=== PATIENT | female | born 1985 | race Two or more races ===

== ENCOUNTER 2024-09-20 09:55 | Emergency (ER) | payer MEDICAID, SELFPAY ==
[2024-09-20 09:57] VITALS: BMI 26.6
[2024-09-20 10:11] VITALS: BP 119/70; PULSE 74; RESP 16; TEMP 36.7; O2SAT 98
--- NOTE | 2024-09-20 10:19 | EDNOTE_ITS ---
<Statement entered by Katelin Samuel MD - 09/20/24 17:56> As co-signing physician, I was present and available for consult prn. I concur with the plan and care as documented by the midlevel provider. ED OB Contraction Preg RMI/HPI General Chief complaint: Vaginal Bleeding Stated complaint: VAG BLEED 6 WEEKS Time Seen by Provider: 09/20/24 10:14 Source: patient Arrival date/time: 09/20/24 09:55 38-year-old female with no known medical history presents to the emergency room with a chief complaint of vaginal spotting. Patient is currently 6 weeks . Patient is a 5 P0. Patient has had a history of 3 ectopic pregnancies and no longer has a right ureter. Mode of arrival: ambulatory Limitations: no limitations Related Data Allergies Allergy/AdvReac Type Severity Reaction Status Date / Time acetaminophen (From Vicodin) AdvReac Vomiting Verified 09/20/24 09:57 hydrocodone (From Vicodin) AdvReac Vomiting Verified 09/20/24 09:57 Review of Systems Review of Systems Systems Reviewed: All systems reviewed, normal except as documented Constitutional Constitutional: Reports system reviewed and no additional complaints, except as documented, Denies fatigue, Denies fever(s), Denies headache(s) and Denies weakness Eyes Eyes: Reports system reviewed and no additional complaints, except as documented, Denies blurry vision and Denies change in vision ENT Ears, Nose, Mouth, and Throat: Reports system reviewed and no additional complaints, except as documented, Denies otalgia, Denies headache(s), Denies nasal congestion, Denies throat swelling and Denies vertigo Cardiovascular Cardiovascular: Reports system reviewed and no additional complaints, except as documented, Denies chest pain, Denies dyspnea and Denies dyspnea on exertion Respiratory Respiratory: Reports system reviewed and no additional complaints, except as documented, Denies chest congestion, Denies cough, Denies dyspnea, Denies dyspnea on exertion and Denies wheezing Gastrointestinal Gastrointestinal: Reports system reviewed and no additional complaints, except as documented, Denies abdominal pain, Denies cramping, Denies nausea and Denies vomiting Genitourinary Genitourinary: Reports system reviewed and no additional complaints, except as documented, Reports abnormal vaginal bleeding and Reports flank pain Musculoskeletal Musculoskeletal: Reports system reviewed and no additional complaints, except as documented and Denies back pain Integumentary/Breasts Skin/Breast: Reports system reviewed and no additional complaints, except as documented and Denies wounds Neurologic Neurologic: Reports system reviewed and no additional complaints, except as documented, Denies confusion, Denies headache(s), Denies lack of coordination, Denies vertigo and Denies weakness Psychiatric Psychiatric: Reports system reviewed and no additional complaints, except as documented, Denies anxiety, Denies confusion, Denies depression, Denies paranoia, Denies suicidal ideation and Denies tactile hallucinations Endocrine Endocrine: Reports system reviewed and no additional complaints, except as documented and Denies fatigue Hematologic/Lymphatic Hematologic/Lymphatic: Reports system reviewed and no additional complaints, except as documented and Denies lymphadenopathy Allergic/Immunologic Allergic/Immunologic: Reports system reviewed and no additional complaints, except as documented, Denies throat swelling, Denies urticaria and Denies wheezing Past Medical History Social History SMOKING STATUS: Never smoker ED Exam General Limitations: Present no limitations General appearance: Present alert and in no apparent distress Head Head exam: Present atraumatic Eye Eye exam: Present normal appearance, PERRL and EOMI ENT ENT exam: Present normal exam, normal oropharynx and mucous membranes moist Neck Neck exam: Present normal inspection, full ROM and trachea midline Chest Chest inspection: Present normal inspection and symmetric chest wall rise Respiratory Respiratory exam: Present normal lung sounds bilaterally Cardiovascular Cardiovascular exam: Present regular rate, normal rhythm and normal heart sounds Abdominal Exam Abdominal exam: Present soft, tenderness and normal bowel sounds Abdominal tenderness: Present RLQ, suprapubic and moderate Extremities Exam Extremities exam: Present normal inspection and full ROM Back Exam Back exam: Present normal inspection and full ROM Neurological Exam Neurological exam: Present alert, oriented X3 and CN II-XII intact Psychiatric Psychiatric exam: Present normal affect and normal mood Skin Skin exam: Present warm, dry, intact and normal color Course Quality Measures none Orders Category Date Time Status US OB <= 14 weeks fetus Stat Exams 09/20/24 10:19 Completed ABO/RH Type Stat Lab 09/20/24 10:30 Completed Beta HCG,Quantitative Stat Lab 09/20/24 10:30 Completed CBC Stat Lab 09/20/24 10:30 Completed CMP [Comprehensive Metabolic Panel] Stat Lab 09/20/24 10:30 Completed UA [Urinalysis] Stat Lab 09/20/24 11:10 Completed Vital Signs Vital signs: Vital Signs Temperature 98.0 F 09/20/24 10:11 Pulse Rate 74 09/20/24 10:11 Respiratory Rate 16 09/20/24 10:11 Blood Pressure 119/70 09/20/24 10:11 Pulse Oximetry (%) 98 09/20/24 10:11 Oxygen Delivery Method Room Air 09/20/24 10:11 O2 saturation 98% within normal limits Vaginal Bleeding MDM Narrative MDM Narrative: 38-year-old female with no known medical history presents to the emergency room with a chief complaint of vaginal spotting. Patient is currently 6 weeks . Patient is a 5 P0. Patient has had a history of 3 ectopic pregnancies and no longer has a right ureter. Patient is hemodynamically stable and in no apparent distress. Patient denies any abdominal pain and has a soft nontender abdomen. Patient states she is having vaginal spotting when she wipes OB ultrasound was completed and at this time does not show an intrauterine gestation or uterine mass. There is no ectopic . hCG levels were 2337. Patient was educated to follow-up with her [facility] or to return to the emergency room in the next 48 to 72 hours for repeat blood work and repeat ultrasound. For any evidence of worsening signs or symptoms return to the emergency room immediately Patient data External records reviewed:: [facility] previous records Clinical information provided by:: patient Social determinants that could affect healthcare access:: none Patient has the following chronic illnesses:: No chronic illness How is presenting disease/condition affected by chronic disease/condition?: no chronic disease Evaluation data The following diagnostics were reviewed and interpreted by me:: lab results and radiology exam(s) Lab and/or radiology exams considered but not ordered:: Labs and radiology exams considered and ordered Interpretation Summary: OB ultrasound-Findings: Uterus 8.4 cm endometrial stripe 1.1 cm No intrauterine gestation or uterine mass Right ovary 3.1 cm arterial flow. Left ovary 3.0 cm arterial flow IMPRESSION: Negative study Medications / Prescriptions Medications or Prescriptions considered but not ordered:: No medication given Medication administrations:: No medication given Consultations Consultation(s) initiated? (list below): No Diagnosis Vaginal Bleeding Differential Diagnosis: threatened , dysfunctional uterine bleeding, incomplete , ectopic without intrauterine and vaginal bleeding Most likely diagnosis given after review of the tests above:: Vaginal bleeding Admission Indicated Admission indicated?: not indicated Admission Request Was there a request for admission?: No Disposition Plan Disposition Plan: Discharge Discharge Attestation Discharge Attestation: The patient and all family members were given an opportunity to ask questions and understood the discharge instructions. Discharge instructions specifically effects, indications for sooner follow up or return to the emergency department, and the expected course of current diagnosis. Patient condition: Stable Discharge Plan Plan Patient Disposition: HOME (Self Care) Disposition Comment: Stable Prescriptions/Referrals Referrals: Julio C Miller MD [Primary Care Provider] - In 1 week Problem List Clinical Impression: Vaginal bleeding Patient/Caregiver Discharge Instructions Education Materials: ED Dysfunctional Uterine Bleeding Additional Instructions: Please follow-up with your [facility] in the next 24 to 48 hours. You will need to get a repeat ultrasound and blood work in the next 48 to 72 hours. At this time your hCG levels are 2337. For any evidence of worsening signs or symptoms return to the emergency room immediately Print Language: [place] Stand Alone Forms: Marivel Award Info., Patient Portal Info Letter PA/SITE OPERATIONS MANAGER Supervising Physician PA/SITE OPERATIONS MANAGER Supervising Physician: Dr. SAMUEL
--- NOTE | 2024-09-20 10:19 | XR_ITS ---
Examination: Complete OB ultrasound, less than 14 weeks, transabdominal Date and time of exam: September 20, 2024 at 1114 hours INDICATIONS: Pelvic pain and vaginal discharge onset today Technique: Obstetrical ultrasound images less than 14 weeks performed via transabdominal imaging Findings: Uterus 8.4 cm endometrial stripe 1.1 cm No intrauterine gestation or uterine mass Right ovary 3.1 cm arterial flow. Left ovary 3.0 cm arterial flow IMPRESSION: Negative study
[2024-09-20 11:17] LABS: Basophils % (Auto) 1 % (0-2.5); Eosinophils # (Auto) 0.3 Thou/mm3 (0.0-0.5); Eosinophils % (Auto) 6 % (0-10); Hematocrit 40.5 % (36.0-46.0); Hemoglobin 13.5 g/dL (12.0-16.0); Immature Granulocytes % (Auto) 0 % (0-0); Immature Granulocytes Auto 0.01 Thou/mm3 (0.00-0.00); Lymphocytes # (Auto) 1.6 Thou/mm3 (1.0-4.8); Lymphocytes % (Auto) 30 % (10-50); Mean Corpuscular HGB Conc 33.3 g/dl (31.0-37.0); Mean Corpuscular Hemoglobin 29.3 pg (25.0-35.0); Mean Corpuscular Volume 88 fL (80-100); Monocytes # (Auto) 0.4 Thou/mm3 (0.0-0.8); Monocytes % (Auto) 7 % (0-12); Neutrophils % (Auto) 56 % (37-80); Nucleated Red Blood Cell % 0 /100 WBC (0); Platelet Count 259 Thou/mm3 (140-440); RDW Standard Deviation 44.2 fL (36.4-46.3); White Blood Count 5.3 Thou/mm3 (3.6-11.0)
[2024-09-20 11:52] LABS: Alanine Aminotransferase 32 U/L (10-49); Albumin, Serum 4.1 gm/dL (3.5-5.0); Albumin/Globulin Ratio 1.5 (1.2-2.2); Alkaline Phosphatase 42 U/L (46-116); Anion Gap 10 (7-16); Aspartate Amino Transferase 21 U/L (0-34); BUN/Creatinine Ratio 14 Ratio (12-20); Beta HCG,Quantitative 2337 mIU/mL (<5.0); Bilirubin,Total 0.6 mg/dL (0.3-1.2); Blood Urea Nitrogen 11 mg/dL (9-23); Calcium 9.6 mg/dL (8.3-10.6); Calcium (Corrected) 9.6 mg/dL (8.5-10.1); Carbon Dioxide 22.8 mMol/L (20.0-31.0); Chloride 106 mMol/L (98-107); Creatinine (Component) 0.8 mg/dL (0.6-1.3); Estimated Creatinine Clearance 104.1 mL/min (>60); Globulin 2.8 gm/dL (2.3-3.5); Glucose 121 mg/dL (74-106); Osmolality,Calculated 277 (275-295); Potassium 4.1 mMol/L (3.4-5.1); Sodium 139 mMol/L (136-145); Total Protein 6.9 gm/dL (5.7-8.2); eGFR > 60 See Note
[2024-09-20 11:53] LABS: Collection Type, Urine Clean Catch
[2024-09-20 12:00] LABS: Bacteria,Urine Rare; Bilirubin,Urine Negative (Negative); Blood,Urine 2+ (Negative); Clarity,Urine Clear (Clear/Hazy); Color,Urine Yellow (Lt Yel-Yel); Glucose, Urine Negative (Negative); Ketones,Urine Negative (Negative); Leukocyte Esterase,Urine Negative (Negative); Nitrite,Urine Negative (Negative); PH,Urine 6.5 (5.0-7.0); Protein,Urine Trace (Neg - Trace); RBC,Urine 5 /hpf (0-3); Specific Gravity,Urine 1.026 (1.001-1.035); Squamous Epithelial Cell,Urine 9 /hpf (0-5); Urobilinogen,Urine Negative mg/dL (0.0-1.0); WBC,Urine 2 /hpf (0-5)
== END 2024-09-20 14:21 | disposition home or self-care (01) ==
PROVIDERS: Nurse Practitioner Family; Emergency Provider Emergency Medicine; PCP Obstetrics & Gynecology
DX: O20.9 Hemorrhage in early pregnancy, unspecified (principal); Z3A.01 Less than 8 weeks gestation of pregnancy
CPT/HCPCS: 36415; 76801; 80053; 81001; 84702; 85025; 86900; 86901; 99284

== ENCOUNTER 2024-09-23 05:41 | Emergency (ER) | payer MEDICAID, SELFPAY ==
[2024-09-23 05:42] VITALS: BMI 26.6
[2024-09-23 05:50] VITALS: BP 112/64; PULSE 78; RESP 18; TEMP 36.6; O2SAT 97
--- NOTE | 2024-09-23 05:51 | PD.EDRME ---
Rapid Medical Screening Exam [facility] Arrival date/time: 09/23/24 05:41 38F at approximately 6 weeks and with history of ectopic (s/p R tubal ligation) presents to ED with needing repeat beta HCG. Patient was here several days ago with nothing on transabdominal US. HCG was around 2k. Patient states she was spotting the first day, but then it stopped. It started again yesterday a bit heavier, but patient denies gross vaginal bleeding and pelvic pain. Chief Complaint: Vaginal Bleeding Vital signs: Vital Signs Temperature 98 F 09/23/24 05:50 Pulse Rate 78 09/23/24 05:50 Respiratory Rate 18 09/23/24 05:50 Blood Pressure 112/64 09/23/24 05:50 Pulse Oximetry (%) 97 09/23/24 05:50 Oxygen Delivery Method Room Air 09/23/24 05:50
--- NOTE | 2024-09-23 05:55 | XR_ITS ---
Examination: OB Transvaginal ultrasound of the pelvis, complete Technique: Transvaginal sonographic images pelvis performed using monahan scale imaging Exam date and time: September 23, 2024 0727 hrs. Indications: Vaginal bleeding and discharge beginning 3 days ago Findings: Uterus 8.0 cm, pole 0.2 cm corresponds to 5 weeks 5 day gestational age No cardiac motion Right ovary 3.0 cm arterial flow Patent right fallopian tube 2.4 cm Left ovary 2.9 cm arterial flow Impression: Intrauterine gestation corresponding to 5 weeks 5 day gestational age, no cardiac motion Recommend short-term follow-up transvaginal pelvic sonography to confirm viability.
[2024-09-23 06:46] LABS: Beta HCG,Quantitative 4130 mIU/mL (<5.0)
--- NOTE | 2024-09-23 08:41 | PD.EDVAGBL ---
ED OB Contraction Preg RMI/HPI General Chief complaint: Vaginal Bleeding Stated complaint: 6WKS PREG RECHECK HCG LEVELS Time Seen by Provider: 09/23/24 06:55 Source: patient Arrival date/time: 09/23/24 05:41 This is a 38-year-old female here in emergency department approximately 6 weeks here for repeat hCG and ultrasound. Reported she did have some mild spotting however denies gross vaginal bleeding or pelvic pain. No fever. No dysuria. Mode of arrival: ambulatory Limitations: no limitations RME / HPI RME / HPI Narrative: 09/23/24 05:41 38F at approximately 6 weeks and with history of ectopic (s/p R tubal ligation) presents to ED with needing repeat beta HCG. Patient was here several days ago with nothing on transabdominal US. HCG was around 2k. Patient states she was spotting the first day, but then it stopped. It started again yesterday a bit heavier, but patient denies gross vaginal bleeding and pelvic pain. Related Data Allergies Allergy/AdvReac Type Severity Reaction Status Date / Time acetaminophen (From Vicodin) AdvReac Vomiting Verified 09/30/24 05:18 hydrocodone (From Vicodin) AdvReac Vomiting Verified 09/30/24 05:18 Review of Systems Review of Systems Systems Reviewed: All systems reviewed, normal except as documented Narrative Review of Systems: Gen: No fever, no chills, no weight loss EYES: No discharge, no visual changes, no pain HEENT: No ear pain, no congestion, no sore throat PULM: No shortness of breath, no cough, no congestion CV: No chest pain, no dyspnea on exertion, no palpitations GI: No nausea, no vomiting, no diarrhea, no pain, no constipation : No frequency, no urgency, no dysuria Musc/skel: No joint pain, no back pain Skin: No rash Psyc: No hallucinations, no depression Heme/Lymph: No easy bleeding or bruising tendencies Neuro: No weakness, no headache ED Exam General Limitations: Present no limitations General appearance: Present alert and in no apparent distress Head Head exam: Present atraumatic Eye Eye exam: Present normal appearance, PERRL and EOMI ENT ENT exam: Present normal exam, normal oropharynx and mucous membranes moist Neck Neck exam: Present normal inspection, full ROM and trachea midline Chest Chest inspection: Present normal inspection and symmetric chest wall rise Respiratory Respiratory exam: Present normal lung sounds bilaterally Cardiovascular Cardiovascular exam: Present regular rate, normal rhythm and normal heart sounds Abdominal Exam Abdominal exam: Present soft and normal bowel sounds Extremities Exam Extremities exam: Present normal inspection and full ROM Back Exam Back exam: Present normal inspection and full ROM Neurological Exam Neurological exam: Present alert, oriented X3 and CN II-XII intact Psychiatric Psychiatric exam: Present normal affect and normal mood Skin Skin exam: Present warm, dry, intact and normal color Course Quality Measures none Orders Category Date Time Status US OB transvaginal Stat Exams 09/23/24 05:55 Completed Beta HCG,Quantitative Stat Lab 09/23/24 06:04 Completed Vital Signs Vital signs: Vital Signs Temperature 98 F 09/23/24 05:50 Pulse Rate 78 09/23/24 05:50 Respiratory Rate 18 09/23/24 05:50 Blood Pressure 112/64 09/23/24 05:50 Pulse Oximetry (%) 97 09/23/24 05:50 Oxygen Delivery Method Room Air 09/23/24 05:50 Vaginal Bleeding MDM Narrative MDM Narrative: No vaginal bleeding. Ultrasound does show an IUP of approximately 5 weeks however no cardiac motion. Advised to follow-up with her PCP for follow-up ultrasound and hCG within a couple days. ER precautions given Patient data External records reviewed:: [facility] previous records Clinical information provided by:: patient Social determinants that could affect healthcare access:: none Patient has the following chronic illnesses:: None How is presenting disease/condition affected by chronic disease/condition?: no chronic disease Evaluation data The following diagnostics were reviewed and interpreted by me:: lab results and radiology exam(s) Lab and/or radiology exams considered but not ordered:: No Interpretation Summary: Ordering Physician: Fidel Townsend PA-C Date of Service: 09/23/24 Procedure(s): OB transvaginal Accession Number(s): [id number] cc: Jose Manuel Villela MD; Julio C Miller MD; Fidel Townsend PA-C~ Examination: OB Transvaginal ultrasound of the pelvis, complete Technique: Transvaginal sonographic images pelvis performed using monahan scale imaging Exam date and time: September 23, 2024 0727 hrs. Indications: Vaginal bleeding and discharge beginning 3 days ago Findings: Uterus 8.0 cm, pole 0.2 cm corresponds to 5 weeks 5 day gestational age No cardiac motion Right ovary 3.0 cm arterial flow Patent right fallopian tube 2.4 cm Left ovary 2.9 cm arterial flow Impression: Intrauterine gestation corresponding to 5 weeks 5 day gestational age, no cardiac motion Recommend short-term follow-up transvaginal pelvic sonography to confirm viability. Medications / Prescriptions Medications or Prescriptions considered but not ordered:: No Medication administrations:: No Consultations Consultation(s) initiated? (list below): No Diagnosis Vaginal Bleeding Differential Diagnosis: missed , threatened , dysfunctional uterine bleeding, incomplete and vaginal bleeding Most likely diagnosis given after review of the tests above:: Threatened Admission Indicated Admission indicated?: not indicated Admission Request Was there a request for admission?: No Disposition Plan Disposition Plan: Discharge Discharge Attestation Discharge Attestation: The patient and all family members were given an opportunity to ask questions and understood the discharge instructions. Discharge instructions specifically effects, indications for sooner follow up or return to the emergency department, and the expected course of current diagnosis. Patient condition: Stable Discharge Plan Plan Patient Disposition: HOME (Self Care) Patient condition on transfer: Stable Prescriptions/Referrals Referrals: Julio C Miller MD [Primary Care Provider] - In 1 week Problem List Clinical Impression: Vaginal bleeding Patient/Caregiver Discharge Instructions Discharge Activity: activity as tolerated Additional Instructions: Hcg 4130 increased from 2337, please have levels repeated by your PMD, in 1 wk U/S- repeat in 1 week. Return to the emergency department, immediately if there is any worsening pain vaginal bleeding fever or changes in condition. Print Language: Croatian Stand Alone Forms: Marivel Award Info., Patient Portal Info Letter KARLENE/LUCIA Supervising Physician KARLENE/LUCIA Supervising Physician: Dr. Ramirez
[2024-09-23 08:58] VITALS: BP 119/62; PULSE 66; RESP 16; TEMP 36.6; O2SAT 97
== END 2024-09-23 09:03 | disposition home or self-care (01) ==
PROVIDERS: Physician Assistant; Emergency Provider Emergency Medicine; PCP Obstetrics & Gynecology
DX: O20.9 Hemorrhage in early pregnancy, unspecified (principal); Z3A.01 Less than 8 weeks gestation of pregnancy
CPT/HCPCS: 36415; 76817; 84702; 99284

== ENCOUNTER 2024-09-30 05:17 | Emergency (ER) | payer MEDICAID, SELFPAY ==
[2024-09-30 05:24] VITALS: BP 100/58; PULSE 84; RESP 18; TEMP 36.7; O2SAT 97
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
--- NOTE | 2024-09-30 05:41 | PD.EDRME ---
Rapid Medical Screening Exam [facility] Arrival date/time: 09/30/24 05:17 38F at approximately 7 weeks and with history of ectopic (s/p R tubal ligation) presents to ED with needing repeat beta HCG and US. Patient was here last week with IU gestation but no FHTs. Patient states she's had intermittent spotting and pelvic cramping since then. Patient is O+. Chief Complaint: Vaginal Bleeding Vital signs: Vital Signs Temperature 98.1 F 09/30/24 05:24 Pulse Rate 84 09/30/24 05:24 Respiratory Rate 18 09/30/24 05:24 Blood Pressure 100/58 L 09/30/24 05:24 Pulse Oximetry (%) 97 09/30/24 05:24 Oxygen Delivery Method Room Air 09/30/24 05:24
[2024-09-30 06:12] LABS: Basophils % (Auto) 1 % (0-2.5); Eosinophils # (Auto) 0.4 Thou/mm3 (0.0-0.5); Eosinophils % (Auto) 7 % (0-10); Hematocrit 40.2 % (36.0-46.0); Hemoglobin 13.4 g/dL (12.0-16.0); Immature Granulocytes % (Auto) 0 % (0-0); Immature Granulocytes Auto 0.02 Thou/mm3 (0.00-0.00); Lymphocytes # (Auto) 1.9 Thou/mm3 (1.0-4.8); Lymphocytes % (Auto) 30 % (10-50); Mean Corpuscular HGB Conc 33.3 g/dl (31.0-37.0); Mean Corpuscular Hemoglobin 29.6 pg (25.0-35.0); Mean Corpuscular Volume 89 fL (80-100); Monocytes # (Auto) 0.5 Thou/mm3 (0.0-0.8); Monocytes % (Auto) 8 % (0-12); Neutrophils # (Auto) 3.5 Thou/mm3 (1.8-7.7); Neutrophils % (Auto) 55 % (37-80); Nucleated Red Blood Cell % 0 /100 WBC (0); Platelet Count 223 Thou/mm3 (140-440); RDW Standard Deviation 43.3 fL (36.4-46.3); Red Blood Count 4.52 Miln/mm3 (4.00-5.20); White Blood Count 6.4 Thou/mm3 (3.6-11.0)
[2024-09-30 06:37] LABS: Alanine Aminotransferase 14 U/L (10-49); Albumin, Serum 4.3 gm/dL (3.5-5.0); Albumin/Globulin Ratio 1.6 (1.2-2.2); Alkaline Phosphatase 42 U/L (46-116); Anion Gap 8 (7-16); Aspartate Amino Transferase 16 U/L (0-34); BUN/Creatinine Ratio 19 Ratio (12-20); Bilirubin,Total 0.7 mg/dL (0.3-1.2); Blood Urea Nitrogen 15 mg/dL (9-23); Calcium 9.7 mg/dL (8.3-10.6); Calcium (Corrected) 9.7 mg/dL (8.5-10.1); Carbon Dioxide 25.9 mMol/L (20.0-31.0); Chloride 106 mMol/L (98-107); Creatinine (Component) 0.8 mg/dL (0.6-1.3); Globulin 2.7 gm/dL (2.3-3.5); Glucose 94 mg/dL (74-106); Osmolality,Calculated 280 (275-295); Potassium 3.9 mMol/L (3.4-5.1); Sodium 140 mMol/L (136-145); eGFR > 60 See Note
[2024-09-30 07:05] LABS: Beta HCG,Quantitative 23848 mIU/mL (<5.0)
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
[2024-09-30 07:53] VITALS: BP 126/77; PULSE 66; RESP 15; TEMP 36.7; O2SAT 97
== END 2024-09-30 07:55 | disposition home or self-care (01) ==
PROVIDERS: Physician Assistant; Emergency Provider Emergency Medicine; PCP Obstetrics & Gynecology
DX: O20.0 Threatened abortion (principal); Z3A.01 Less than 8 weeks gestation of pregnancy
CPT/HCPCS: 36415; 76817; 80053; 84702; 85025; 99284

== ENCOUNTER 2024-10-12 12:23 | Emergency (ER) | payer MEDICAID, SELFPAY ==
[2024-10-12 12:25] VITALS: BMI 26.9
[2024-10-12 12:35] VITALS: BP 132/78; PULSE 79; RESP 19; TEMP 36.7; O2SAT 97
--- NOTE | 2024-10-12 12:35 | PC.NURSE ---
Dr. Sesay called to triage to assess patient for possible stroke, patient c/o kevin. face numbness, patient has h/o migraines, no stroke alert called at this time, per Dr. Mendoza, patient able to move all extremities. patient approx. 8 weeks .
--- NOTE | 2024-10-12 12:35 | PC.NURSE ---
PT MOVED TO ROOM TO BE EVALUATED BY GALLERY ASSISTANT TO R/O STROKE ALERT. CHARGE NURSE PARIS BESS.
--- NOTE | 2024-10-12 12:46 | PD.EDNEURO ---
Neuro Symptoms Deficit-RME/HPI General Chief Complaint: Neuro Symptoms/Deficit Stated Complaint: 8WK PREG, DIZZY WITH FACIAL NUMBNESS, SLURRY WORDS Time Seen by Provider: 10/12/24 12:48 Arrival date/time: 10/12/24 12:23 RME / HPI RME / HPI Narrative: DR. SESAY MAIN ED EVALUATION: 39 year old female with past medical history significant for hemiplegic migraines since age 26 and current 8 weeks , G5, P0, A4 (x1 miscarriage and x3 ectopic pregnancies) presents to the Emergency Department accompanied by her with multiple complaints including a left-sided headache, similar to her migraines, with associated bilateral facial numbness and tingling. She also mentions she has a brief moment where she had vision changes, light spots seen, but now feels better. Normal gait. Patient also states that she has very light vaginal bleeding that is light brown , ongoing for more than a month on/off. She also reports nausea ongoing since her . Patient states she took Tylenol right before coming here. 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 Related Data Allergies Allergy/AdvReac Type Severity Reaction Status Date / Time acetaminophen (From Vicodin) AdvReac Vomiting Verified 10/12/24 12:29 hydrocodone (From Vicodin) AdvReac Vomiting Verified 10/12/24 12:29 Review of Systems Review of Systems Systems Reviewed: All systems reviewed, normal except as documented Narrative Review of Systems: Constitutional: POSITIVES: vaginal spotting (see HPI); DENIES: fevers; Eyes: POSITIVES: vision changes, light spots seen; DENIES: loss of vision; Head/Ear/Nose: DENIES: loss of hearing. Throat: DENIES: dysphagia. Cardiovascular: DENIES: chest pain, dyspnea, or syncope. Respiratory: DENIES: shortness of breath; Gastrointestinal: POSITIVES: nausea; DENIES: rectal bleeding or melena. Genitourinary: DENIES: dysuria (painful or difficult urination); Musculoskeletal: DENIES: arthralgia (pain in a joint); Skin: DENIES: rash; Neurological: POSITIVES: left-sided headache, bilateral facial numbness and tingling; DENIES: loss of function or movement; Psychiatric: DENIES: recent major life stressor, emotional problem, illicit drug use or abuse; Endocrinology: DENIES: weight change,; Hematologic/Lymphatic: DENIES: abnormal bruising. Allergic/Immunologic: DENIES: urticaria (hives). Past Medical History Past Medical History NEUROLOGIC: Positive Migraine Social History SMOKING STATUS: Never smoker SUBSTANCE USE: does not use ALCOHOL: Never ED Exam Narrative Physical exam: Physical Exam: General: The vital signs were reviewed. The patient is non-toxic, in no apparent distress and appears healthy with a patent airway, no respiratory distress and has no apparent circulatory problems. Head & Scalp: Normocephalic, atraumatic. Face: Appears normal and is without lesions, deformity. Ears: Left external pinna appears normal. Right external pinna appears normal. Eyes: The sclera is anicteric. No obvious photophobia. The Left and Right Orbit/Lid/Conjunctiva appears normal without swelling, discoloration or injection. Nose: The nose is without deformity, discharge or tenderness; Throat: Appears normal. The mucous membranes are pink and moist without exudates, redness or mass seen. The tongue appears normal. Neck: The neck is supple and no apparent mass or adenopathy. Chest: The chest wall is normal in size and symmetry and has no chest wall tenderness or crepitus. The patient displays normal ventilator effort without retractions, accessory muscle use and has adequate air movement bilaterally with no wheezes and no rales. Cardiovascular: Regular rate and rhythm; No murmurs, rubs, or gallops; Gastrointestinal: The abdomen appears normal. No obvious hernias or mass. The abdomen is soft and benign, non-distended, with no pain, no guarding and no rebound tenderness. Bowel sounds are present and normal sounding. No CVA tenderness. Genitourinary: Back/Spine: Extremities/Musculoskeletal/lymphatic: The bilateral upper and lower extremities are warm. There is no evidence of arterial insufficiency. There is no evidence of venous insufficiency/edema. The patient spontaneously moves bilateral upper and lower extremities with no pain and no limitation of movement. There is no apparent, injury or trauma. Skin: The skin is warm, dry and intact. No rashes. No petechia. No purpura. No abnormal bruising. The color is appropriate with no cyanosis. Mental status/Psychiatric: Mental status is appropriate for age. The patient has no apparent delusions, visual hallucinations, no apparent audible hallucinations. The patient has no apparent suicidal thoughts/ideation and no apparent homicidal thoughts/ideation. Neurological: The patient is awake, alert, interactive, cordial, cooperative and is oriented to name and situation. The patient follows commands and answers historical question with no impairment. Cranial nerves II through XII are intact. There is no diplopia. She has subjective tingling to her face There is no visual disturbance apparent. The pupils are equal and reactive bilaterally with normal eye movements and no diplopia The bilateral upper and lower extremities have normal strength, normal range of motion and normal functioning. The gait, station and balance appear to be baseline with no acute change she gets off from the chair and walks without any ataxia. She has no focal deficit in arms or legs. Course Quality Measures none Orders Category Date Time Status Bedside Blood Glucose NOW Care 10/12/24 12:49 Active US OB <= 14 weeks fetus Stat Exams 10/12/24 12:53 Completed XR chest 1V portable Stat Exams 10/12/24 12:49 Completed ABO/RH Type Stat Lab 10/12/24 16:28 Ordered Alcohol, Blood Medical Stat Lab 10/12/24 13:46 Completed B-Type Natriuretic Peptide Stat Lab 10/12/24 13:46 Completed Beta HCG,Quantitative Stat Lab 10/12/24 13:46 Received Blood Culture (Lab) Stat Lab 10/12/24 13:46 Received CBC Stat Lab 10/12/24 13:46 Completed Comprehensive Metabolic Panel Stat Lab 10/12/24 13:46 Completed Drug Screen,Urine Stat Lab 10/12/24 13:51 Completed Lactate (Lactic Acid) Stat Lab 10/12/24 13:46 Completed Procalcitonin Stat Lab 10/12/24 13:46 Completed Prothrombin Time with INR Stat Lab 10/12/24 13:46 Completed Troponin I Stat Lab 10/12/24 13:46 Completed Urinalysis Stat Lab 10/12/24 13:46 Completed Urinalysis, C/S if Indicated Stat Lab 10/12/24 13:46 Completed Venous Blood Gas Stat Lab 10/12/24 13:46 Completed Metoclopramide Inj [Reglan Inj] Med 10/12/24 12:53 Discontinued 10 mg IVP X1 ONE Sodium Chloride 0.9% 1000 ml [Ns] 1,000 ml Med 10/12/24 12:48 Discontinued IV 1,000 mls/hr Vital Signs Vital signs: Vital Signs Temperature 98.1 F 10/12/24 12:35 Pulse Rate 79 10/12/24 12:35 Respiratory Rate 19 10/12/24 12:35 Blood Pressure 132/78 H 10/12/24 12:35 Pulse Oximetry (%) 97 10/12/24 12:35 Oxygen Delivery Method Room Air 10/12/24 12:35 Neuro Symptoms / Deficit MDM Narrative MDM Narrative:: I, Sada Mendoza, am scribing for and in the presence of Dr. Sesay. Patient presents with bilateral tingling to her face and arm with a left-sided headache and has a history of complex her hemiplegic migraines. She has had 5 pregnancies now and for them have been and she is currently at 8 weeks. Because of this she is not a candidate for any migraine treatment. She does not have a CVA as presumably this is all related to her migraines. I discussed this with Dr. Bess our neurologist to see if there is any other options and she agreed with fluids Tylenol and Reglan and then reevaluate. Patient was updated at 1250 hrs. and seems to be much more relieved with the plan as she is asked specially nervous about this baby. Patient got a liter of fluids got some Reglan and on reevaluation she is feeling much much better. She says her tingling and neurologic symptoms have nearly resolved. She has just minimal discomfort behind the left eye which is typical for her complex migraines historically Ultrasound of the fetus reveals a live IUP 7 weeks 5 days. There is no subchorionic hemorrhage. Urine drug screen came back negative. Urinalysis came back negative. CMP came back negative with a lactic acid of 1 electrolytes are normal except for sodium 133 which is minimally low BUN is 8 creatinine is 0.7. Venous blood gas came back with a pH of 736 and PT and INR within normal limits white count is 7.6. Hemoglobin 13.7 This patient presented with a possible stroke alert as she was having neurological symptoms and the charge nurse brought her to my attention where I got up and went and saw this patient immediately. Do not feel this patient was having a stroke as she has a strong history of complex migraines in the past and was not having any significant neurological symptoms other than paresthesia and pain in the left side of her orbit and head. Note patient is O+ has records with her to confirm this. Nonetheless I added an ABO just for documentation After observation for several hours she is clinically much improved. She knows to follow-up with her OB doctor in 2 days for recheck. Her spotting has been minimal. A quant of hCG was missed and ordered late. Patient knows to return if getting worse in any way and take Tylenol and try to get regular sleep patterns and get a appoint with a neurologist in this region to manage her complex migraines for the future. Patient data External records reviewed:: [facility] previous records (Reviewed last ED visit dated 09/30/24, discharged with the following: Threatened ) Clinical information provided by:: patient and spouse Social determinants that could affect healthcare access:: none Patient has the following chronic illnesses:: hemiplegic migraines since age 26 and current 8 weeks , G5, P0, A4 (x1 miscarriage and x3 ectopic pregnancies) How is presenting disease/condition affected by chronic disease/condition?: exacerbated by Evaluation data The following diagnostics were reviewed and interpreted by me:: lab results and radiology exam(s) Lab and/or radiology exams considered but not ordered:: none Interpretation Summary: Procedure(s): US OB <= 14 weeks fetus Accession Number(s): [id number] cc: Edmund Sesay MD; Jose Manuel Villela MD; Julio C Miller MD~ Examination: Complete OB ultrasound, less than 14 weeks, transabdominal Date and time of exam: October 12, 2024 1404 hours INDICATIONS: Vaginal bleeding today Technique: Obstetrical ultrasound images less than 14 weeks performed via transabdominal imaging Findings: A normal shaped single intrauterine gestation is present in the uterus. CRL 1.4 cm corresponds to 7 weeks 5 days gestational age No subchorionic hemorrhage Cardiac motion 153 BPM Ultrasonographic survey of visible and placental structures unremarkable. Amniotic fluid volume appears appropriate for this estimated gestational age. Right ovary 3.3 cm arterial flow Left ovary 3.4 cm arterial flow IMPRESSION: Viable intrauterine gestation 7 weeks 5 days. Dictated By: Jose Manuel Villela MD Procedure(s): XR chest 1V portable Accession Number(s): [id number] cc: Edmund Sesay MD; Jose Manuel Villela MD; Julio C Miller MD~ Examination: AP chest single view Technique one AP portable upright chest single view Exam date and time: October 12, 2024 1307 hours INDICATIONS: Acute chest pain today FINDINGS: Normal heart size. Lungs are clear. The osseous structures are intact IMPRESSION: No active disease Dictated By: Jose Manuel Villela MD Medications / Prescriptions Medications or Prescriptions considered but not ordered:: none Medication administrations:: Medication Administration History Discontinued Medications Sodium Chloride (Ns) 1,000 mls @ 1,000 mls/hr IV .Q1H ONE Stop: 10/12/24 13:47 Last Admin: 10/12/24 13:38 Dose: 1,000 mls/hr Documented By: NATASHA Comments: scanner not working Metoclopramide HCl (Metoclopramide Inj 5 Mg/Ml Vial 2 Ml) 10 mg IVP X1 ONE; Protocol Stop: 10/12/24 12:54 Last Admin: 10/12/24 13:39 Dose: 10 mg Documented By: NATASHA Comments: scanner not working see above Consultations Consultation(s) initiated? (list below): Yes Consultation #1 (Physician, Specialty, Details): Discussed test HPI, PMHx, lab, radiology results and/or management with Dr. Bess. See above under MDM narrative for details. Time: 12:55 Diagnosis Neuro Differential Diagnosis: transient cerebral ischemia and other (dehydration, sepsis, UTI) Most likely diagnosis given after review of the tests above:: First trimester Migraine Admission Indicated Admission indicated?: not indicated Admission Request Was there a request for admission?: No Disposition Plan Disposition Plan: Discharge Discharge Attestation Discharge Attestation: The patient and all family members were given an opportunity to ask questions and understood the discharge instructions. Discharge instructions specifically effects, indications for sooner follow up or return to the emergency department, and the expected course of current diagnosis. Patient condition: Stable Discharge Plan Plan Patient Disposition: HOME (Self Care) Prescriptions/Referrals Referrals: Julio C Miller MD [Primary Care Provider] - In 1 week Problem List Clinical Impression: First trimester , Migraine, Paresthesias Impression comment: Patient actually has complex migraines with past history of hemiplegic symptoms but today was only paresthesias greatly improved Patient/Caregiver Discharge Instructions Education Materials: First Trimester Additional Instructions: Follow-up with your OB doctor in 2 days as we discussed. Your ultrasound reveals a live healthy baby. If you are having bleeding or increasing pain please return or see your OB doctor sooner. Today you appear to have another complex migraine with paresthesias or tingling which has gotten better. As we discussed it is safe to drink plenty of fluids to stay well-hydrated use Tylenol for pain and return if you are getting worse in any way. Print Language: Palauan
--- NOTE | 2024-10-12 12:49 | XR_ITS ---
Examination: AP chest single view Technique one AP portable upright chest single view Exam date and time: October 12, 2024 1307 hours INDICATIONS: Acute chest pain today FINDINGS: Normal heart size. Lungs are clear. The osseous structures are intact IMPRESSION: No active disease
--- NOTE | 2024-10-12 12:53 | XR_ITS ---
Examination: Complete OB ultrasound, less than 14 weeks, transabdominal Date and time of exam: October 12, 2024 1404 hours INDICATIONS: Vaginal bleeding today Technique: Obstetrical ultrasound images less than 14 weeks performed via transabdominal imaging Findings: A normal shaped single intrauterine gestation is present in the uterus. CRL 1.4 cm corresponds to 7 weeks 5 days gestational age No subchorionic hemorrhage Cardiac motion 153 BPM Ultrasonographic survey of visible and placental structures unremarkable. Amniotic fluid volume appears appropriate for this estimated gestational age. Right ovary 3.3 cm arterial flow Left ovary 3.4 cm arterial flow IMPRESSION: Viable intrauterine gestation 7 weeks 5 days.
[2024-10-12] MEDS: SODIUM CHLORIDE 0.9% 1000 ML 1,000 ML IV (13:38)
[2024-10-12] MEDS: METOCLOPRAMIDE INJ 5 MG/ML VIAL 2 ML 10 MG IVP (13:39)
[2024-10-12 13:53] LABS: Collection Type, Urine Clean Catch
[2024-10-12 14:13] LABS: Bacteria,Urine Rare; Base Excess, Venous 0 (-3-3); Bilirubin,Urine Negative (Negative); Blood,Urine Negative (Negative); Clarity,Urine Clear (Clear/Hazy); Color,Urine Yellow (Lt Yel-Yel); Culture Indicated,Urine Not Indicated; Glucose, Urine Negative (Negative); Ketones,Urine Negative (Negative); Leukocyte Esterase,Urine Negative (Negative); Nitrite,Urine Negative (Negative); O2 Saturation, Venous 72 % (96-97); PCO2, Venous 45 mmHg (36-56); PO2, Venous 39 mmHg (15-58); Protein,Urine Negative (Neg - Trace); RBC,Urine 2 /hpf (0-3); Squamous Epithelial Cell,Urine 6 /hpf (0-5); Urobilinogen,Urine Negative mg/dL (0.0-1.0); WBC,Urine 2 /hpf (0-5); pH, Venous 7.36 (7.33-7.66)
[2024-10-12 14:19] LABS: Basophils % (Auto) 1 % (0-2.5); Eosinophils # (Auto) 0.5 Thou/mm3 (0.0-0.5); Eosinophils % (Auto) 7 % (0-10); Hematocrit 39.8 % (36.0-46.0); Hemoglobin 13.7 g/dL (12.0-16.0); Immature Granulocytes % (Auto) 0 % (0-0); Immature Granulocytes Auto 0.03 Thou/mm3 (0.00-0.00); Lymphocytes # (Auto) 1.9 Thou/mm3 (1.0-4.8); Lymphocytes % (Auto) 26 % (10-50); Mean Corpuscular HGB Conc 34.4 g/dl (31.0-37.0); Mean Corpuscular Hemoglobin 30.2 pg (25.0-35.0); Mean Corpuscular Volume 88 fL (80-100); Monocytes # (Auto) 0.6 Thou/mm3 (0.0-0.8); Monocytes % (Auto) 9 % (0-12); Neutrophils # (Auto) 4.4 Thou/mm3 (1.8-7.7); Neutrophils % (Auto) 59 % (37-80); Nucleated Red Blood Cell % 0 /100 WBC (0); Platelet Count 207 Thou/mm3 (140-440); Red Blood Count 4.53 Miln/mm3 (4.00-5.20); White Blood Count 7.6 Thou/mm3 (3.6-11.0)
[2024-10-12 14:27] LABS: Amphetamine/Methamp Scrn,U Negative (Negative); Barbiturate Screen,Urine Negative (Negative); Benzodiazepines Screen,Urine Negative (Negative); Benzoylecgonine Screen, Ur Negative (Negative); Fentanyl Screen,Urine Negative (Negative); Opiate Screen,Urine Negative (Negative); THC Screen,Urine Negative (Negative)
[2024-10-12 14:33] LABS: Prothrombin Time 10.9 Seconds (9.0-12.2)
[2024-10-12 14:49] LABS: B-Type Natriuretic Peptide 25 pg/mL (0-100)
[2024-10-12 15:01] LABS: Alanine Aminotransferase 18 U/L (10-49); Albumin, Serum 4.5 gm/dL (3.5-5.0); Albumin/Globulin Ratio 1.7 (1.2-2.2); Alcohol, Blood Medical < 3.0 mg/dL (0-10.0); Alkaline Phosphatase 45 U/L (46-116); Anion Gap 7 (7-16); Aspartate Amino Transferase 20 U/L (0-34); BUN/Creatinine Ratio 11 Ratio (12-20); Bilirubin,Total 0.5 mg/dL (0.3-1.2); Blood Urea Nitrogen 8 mg/dL (9-23); Calcium 9.2 mg/dL (8.3-10.6); Calcium (Corrected) 9.2 mg/dL (8.5-10.1); Carbon Dioxide 24.5 mMol/L (20.0-31.0); Chloride 102 mMol/L (98-107); Creatinine (Component) 0.7 mg/dL (0.6-1.3); Estimated Creatinine Clearance 118.4 mL/min (>60); Globulin 2.6 gm/dL (2.3-3.5); Glucose 83 mg/dL (74-106); Osmolality,Calculated 263 (275-295); Potassium 3.8 mMol/L (3.4-5.1); Procalcitonin 0.08 ng/ml (0.0-0.49); Sodium 133 mMol/L (136-145); Total Protein 7.1 gm/dL (5.7-8.2); Troponin I < 0.002 ng/mL (0.0-0.045); eGFR > 60 See Note
[2024-10-12 15:23] VITALS: BP 112/68; PULSE 62; RESP 16; TEMP 36.6; O2SAT 98
[2024-10-12 16:25] VITALS: BP 104/60; PULSE 60; RESP 18; TEMP 37.1; O2SAT 100
[2024-10-12 17:52] LABS: Beta HCG,Quantitative 86906 mIU/mL (<5.0)
== END 2024-10-12 17:29 | disposition home or self-care (01) ==
PROVIDERS: Emergency Provider Emergency Medicine; PCP Obstetrics & Gynecology
DX: O99.351 Diseases of the nervous system complicating pregnancy, first trimester (principal); G43.109 Migraine with aura, not intractable, without status migrainosus; Z3A.01 Less than 8 weeks gestation of pregnancy
CPT/HCPCS: 36415; 71045; 76801; 80053; 80307; 80320; 81001; 82803; 83605; 83880; 84145; 84484; 84702; 85025; 85610; 86900; 86901; 87040; 96361; 96374; 99284; J2765; J7030; G0480

== ENCOUNTER 2024-10-18 08:21 | Emergency (ER) | payer MEDICAID, SELFPAY ==
[2024-10-18 08:32] VITALS: BP 134/73; PULSE 70; RESP 17; TEMP 36.5; O2SAT 97
--- NOTE | 2024-10-18 08:47 | XR_ITS ---
Examination: Complete OB ultrasound, less than 14 weeks, transabdominal Date and time of exam: October 18, 2024 0904 hours INDICATIONS: Recurrent episodes of vaginal bleeding beginning 2 months ago Technique: Obstetrical ultrasound images less than 14 weeks performed via transabdominal imaging Findings: A normal shaped single intrauterine gestation is present in the uterus. pole 2.1 cm corresponds to 8 weeks 5 day gestational age Subchorionic hemorrhage 24 x 10 x 20 mm Ultrasonographic survey of visible and placental structures unremarkable. Amniotic fluid volume appears appropriate for this estimated gestational age. Right ovary 3.5 cm arterial flow, suspicious for solid right ovarian mass 14 x 13 x 15 mm Left ovary 2.8 cm arterial flow IMPRESSION: Viable intrauterine gestation 8 weeks 5 days Cardiac motion 166 BPM Given the subchorionic hemorrhage, recommend short-term follow-up pelvic sonography Also recommend 6 month follow-up pelvic sonography with specific attention to small solid mass right ovary 14 x 13 x 15 mm.
[2024-10-18 09:17] LABS: Basophils # (Auto) 0.1 Thou/mm3 (0.0-0.2); Basophils % (Auto) 1 % (0-2.5); Eosinophils # (Auto) 0.5 Thou/mm3 (0.0-0.5); Eosinophils % (Auto) 6 % (0-10); Hematocrit 40.8 % (36.0-46.0); Hemoglobin 13.9 g/dL (12.0-16.0); Immature Granulocytes % (Auto) 0 % (0-0); Immature Granulocytes Auto 0.02 Thou/mm3 (0.00-0.00); Lymphocytes # (Auto) 1.8 Thou/mm3 (1.0-4.8); Lymphocytes % (Auto) 22 % (10-50); Mean Corpuscular HGB Conc 34.1 g/dl (31.0-37.0); Mean Corpuscular Hemoglobin 30.6 pg (25.0-35.0); Mean Corpuscular Volume 90 fL (80-100); Monocytes # (Auto) 0.6 Thou/mm3 (0.0-0.8); Monocytes % (Auto) 7 % (0-12); Neutrophils # (Auto) 5.1 Thou/mm3 (1.8-7.7); Neutrophils % (Auto) 64 % (37-80); Nucleated Red Blood Cell % 0 /100 WBC (0); Platelet Count 216 Thou/mm3 (140-440); RDW Standard Deviation 44.1 fL (36.4-46.3); Red Blood Count 4.54 Miln/mm3 (4.00-5.20)
[2024-10-18] MEDS: HYDROcodone/APAP 5/325 TABLET 1 TAB PO (09:29)
[2024-10-18] MEDS: METOCLOPRAMIDE INJ 5 MG/ML VIAL 2 ML 10 MG IM (09:29)
[2024-10-18] MEDS: DiphenhydrAMINE 25 MG CAPSULE PO (09:29)
[2024-10-18 09:44] LABS: Alanine Aminotransferase 17 U/L (10-49); Albumin, Serum 4.3 gm/dL (3.5-5.0); Albumin/Globulin Ratio 1.7 (1.2-2.2); Alkaline Phosphatase 45 U/L (46-116); Anion Gap 9 (7-16); Aspartate Amino Transferase 15 U/L (0-34); BUN/Creatinine Ratio 13 Ratio (12-20); Bilirubin,Total 0.6 mg/dL (0.3-1.2); Blood Urea Nitrogen 9 mg/dL (9-23); Calcium 8.7 mg/dL (8.3-10.6); Calcium (Corrected) 8.7 mg/dL (8.5-10.1); Carbon Dioxide 24.4 mMol/L (20.0-31.0); Chloride 104 mMol/L (98-107); Creatinine (Component) 0.7 mg/dL (0.6-1.3); Globulin 2.5 gm/dL (2.3-3.5); Glucose 90 mg/dL (74-106); Osmolality,Calculated 272 (275-295); Potassium 3.8 mMol/L (3.4-5.1); Sodium 137 mMol/L (136-145); Total Protein 6.8 gm/dL (5.7-8.2); eGFR > 60 See Note
--- NOTE | 2024-10-18 09:55 | PD.EDRME ---
Rapid Medical Screening Exam RME Arrival date/time: 10/18/24 08:21 39-year-old female G5, P0 presents to the emergency department today for complaints of headache, pelvic cramping and vaginal spotting Chief Complaint: OB/Uterine Contractions Time Seen by Provider: 10/18/24 08:42 Vital signs: Vital Signs Temperature 97.7 F 10/18/24 08:32 Pulse Rate 70 10/18/24 08:32 Respiratory Rate 17 10/18/24 08:32 Blood Pressure 134/73 H 10/18/24 08:32 Pulse Oximetry (%) 97 10/18/24 08:32 Oxygen Delivery Method Room Air 10/18/24 08:32
[2024-10-18 09:56] LABS: Collection Type, Urine Clean Catch; WBC,Urine 0 /hpf (0-5)
[2024-10-18 09:56] LABS: Beta HCG,Quantitative > 10000 mIU/mL (<5.0)
[2024-10-18 10:18] LABS: Amorphous Crystals,Urine Present (Absent); Bilirubin,Urine Negative (Negative); Blood,Urine 2+ (Negative); Clarity,Urine Turbid (Clear/Hazy); Color,Urine Yellow (Lt Yel-Yel); Culture Indicated,Urine Not Indicated; Glucose, Urine Negative (Negative); Ketones,Urine Negative (Negative); Nitrite,Urine Negative (Negative); PH,Urine 8.5 (5.0-7.0); Protein,Urine 1+ (Neg - Trace); RBC,Urine 20 /hpf (0-3); Specific Gravity,Urine 1.038 (1.001-1.035); Squamous Epithelial Cell,Urine 28 /hpf (0-5); Urobilinogen,Urine Negative mg/dL (0.0-1.0)
[2024-10-18 10:19] LABS: Leukocyte Esterase,Urine Negative (Negative)
--- NOTE | 2024-10-18 13:16 | EDNOTE_ITS ---
ED Headache RME/HPI General Chief Complaint: OB/Uterine Contractions Stated Complaint: PREG 9WKS, SPOTTING, BAD MIGRAINE 11/23 Time Seen by Provider: 10/18/24 08:42 Arrival date/time: 10/18/24 08:21 Limitations: no limitations RME / HPI RME / HPI Narrative: 10/18/24 08:21 39-year-old female G5, P0 presents to the emergency department today for complaints of headache, pelvic cramping and vaginal spotting DR. CONTEH MAIN ED EVALUATION: 39 year old female with past medical history significant for migraines and who is 8 weeks and 5 days , G5, P0, presents to the Emergency Department accompanied by her with complaint of a headache. She describes her headache as a migraine, which she had similar symptoms in the past. She also reported vaginal spotting. She states that the [place] that was given helped a little but still has some pain. No fevers or chills. No other symptoms reported at this time. Related Data Previous Rx's ?Medication ?Instructions ?Recorded diphenhydramine HCl 25 mg capsule 25 mg PO TID PRN hea dache #30 caps 10/18/24 (Allergy (diphenhydramine)) metoclopramide HCl 10 mg tablet 10 mg PO Q6H PRN heada alondra #30 tabs 10/18/24 (Reglan) Allergies Allergy/AdvReac Type Severity Reaction Status Date / Time acetaminophen (From Vicodin) Allergy Mild Vomiting Verified 10/18/24 08:26 hydrocodone (From Vicodin) Allergy Mild Vomiting Verified 10/18/24 08:26 Review of Systems Review of Systems Systems Reviewed: All systems reviewed, normal except as documented Narrative Review of Systems: GEN: No fever, no chills, no weight loss EYES: No discharge, no visual changes, no pain HEENT: No ear pain, no congestion, no sore throat PULM: No shortness of breath, no cough, no congestion CV: No chest pain, no dyspnea on exertion, no palpitations GI: No nausea, no vomiting, no diarrhea, no pain, no constipation + vaginal spotting (see HPI) : No frequency, no urgency and no dysuria MUSC/SKEL: No joint pain, no back pain SKIN: No rash PSYCH: No hallucinations, no depression HEME/LYMPH: No easy bleeding or bruising tendencies NEURO: No weakness, + headache Past Medical History Past Medical History NEUROLOGIC: Positive Migraine Social History SMOKING STATUS: Never smoker SUBSTANCE USE: does not use ALCOHOL: Never ED Exam General Limitations: Present no limitations General appearance: Present alert and in no apparent distress Head Head exam: Present atraumatic, normocephalic and normal inspection Eye Eye exam: Present normal appearance, PERRL and EOMI ENT ENT exam: Present normal exam, normal oropharynx and mucous membranes moist Neck Neck exam: Present normal inspection, full ROM and trachea midline Chest Chest inspection: Present normal inspection and symmetric chest wall rise Respiratory Respiratory exam: Present normal lung sounds bilaterally Cardiovascular Cardiovascular exam: Present regular rate, normal rhythm and normal heart sounds Abdominal Exam Abdominal exam: Present soft and normal bowel sounds Extremities Exam Extremities exam: Present normal inspection and full ROM Back Exam Back exam: Present normal inspection and full ROM Neurological Exam Neurological exam: Present alert, oriented X3 and CN II-XII intact Psychiatric Psychiatric exam: Present normal affect and normal mood Skin Skin exam: Present warm, dry, intact and normal color Course Quality Measures none Orders Category Date Time Status Discharge Routine Discharge 10/18/24 13:53 Active US OB <= 14 weeks fetus Stat Exams 10/18/24 08:47 Completed Beta HCG,Quantitative Stat Lab 10/18/24 08:57 Completed CBC Stat Lab 10/18/24 08:57 Completed Comprehensive Metabolic Panel Stat Lab 10/18/24 08:57 Completed UA, C/S IF [Urinalysis, C/S if Indicated] Stat Lab 10/18/24 09:30 Completed DiphenhydrAMINE [Benadryl] Med 10/18/24 08:47 Discontinued 25 mg PO X1 ONE HYDROcodone*/APAP 5/325 [[place] 5/325] Med 10/18/24 08:47 Discontinued 1 tab PO X1 ONE Metoclopramide Inj [Reglan Inj] Med 10/18/24 08:47 Discontinued 10 mg IM X1 ONE Vital Signs Vital signs: Vital Signs Temperature 97.7 F 10/18/24 08:32 Pulse Rate 70 10/18/24 08:32 Respiratory Rate 17 10/18/24 08:32 Blood Pressure 134/73 H 10/18/24 08:32 Pulse Oximetry (%) 97 10/18/24 08:32 Oxygen Delivery Method Room Air 10/18/24 08:32 Headache MDM Narrative MDM Narrative:: I, Sada Reji, am scribing for and in the presence of Dr. Conteh. Patient findings are as follows Normal arteries 1 heart activity Transverse of the tumor about 1.5 cm The area of the right ovary Headache is improved with the Reglan Benadryl and [place] Lab workup was unremarkable Patient had minimal bleeding from the uterus Just ordered it just to get headache improved with the medications Patient was discharged with the diagnosis of threatened with migraine headache She was given prescription of the plan Blood pressure limited activity with pelvic rest Reglan Benadryl for pain Tylenol for pain And follow-up with MD regarding the ovarian findings Patient data External records reviewed:: [facility] previous records (Reviewed last ED visit dated 10/12/24, discharged with the following: First trimester ) Clinical information provided by:: patient and spouse Social determinants that could affect healthcare access:: none Patient has the following chronic illnesses:: Migraines and who is 8 weeks and 5 days , G5, P0. How is presenting disease/condition affected by chronic disease/condition?: caused by Evaluation data The following diagnostics were reviewed and interpreted by me:: lab results and radiology exam(s) Lab and/or radiology exams considered but not ordered:: none Interpretation Summary: Procedure(s): US OB <= 14 weeks fetus Accession Number(s): [id number] cc: Gail (MARY),Alan HERNANDEZ; Jose Manuel Villela MD; Julio C Miller MD~ Examination: Complete OB ultrasound, less than 14 weeks, transabdominal Date and time of exam: October 18, 2024 0904 hours INDICATIONS: Recurrent episodes of vaginal bleeding beginning 2 months ago Technique: Obstetrical ultrasound images less than 14 weeks performed via transabdominal imaging Findings: A normal shaped single intrauterine gestation is present in the uterus. pole 2.1 cm corresponds to 8 weeks 5 day gestational age Subchorionic hemorrhage 24 x 10 x 20 mm Ultrasonographic survey of visible and placental structures unremarkable. Amniotic fluid volume appears appropriate for this estimated gestational age. Right ovary 3.5 cm arterial flow, suspicious for solid right ovarian mass 14 x 13 x 15 mm Left ovary 2.8 cm arterial flow IMPRESSION: Viable intrauterine gestation 8 weeks 5 days Cardiac motion 166 BPM Given the subchorionic hemorrhage, recommend short-term follow-up pelvic sonography Also recommend 6 month follow-up pelvic sonography with specific attention to small solid mass right ovary 14 x 13 x 15 mm. Dictated By: Jose Manuel Villela MD Medications / Prescriptions Medications or Prescriptions considered but not ordered:: none Medication administrations:: Medication Administration History Discontinued Medications Hydrocodone Bitart/Acetaminophen (Hydrocodone/Apap 5/325 Tablet) 1 tab PO X1 ONE Stop: 10/18/24 08:48 Last Admin: 10/18/24 09:29 Dose: 1 tab Documented By: ER Diphenhydramine HCl (Diphenhydramine 25 Mg Capsule) 25 mg PO X1 ONE Stop: 10/18/24 08:48 Last Admin: 10/18/24 09:29 Dose: 25 mg Documented By: ER Metoclopramide HCl (Metoclopramide Inj 5 Mg/Ml Vial 2 Ml) 10 mg IM X1 ONE; Protocol Stop: 10/18/24 08:48 Last Admin: 10/18/24 09:29 Dose: 10 mg Documented By: ER see above Consultations Consultation(s) initiated? (list below): No Diagnosis Differential diagnosis headache: migraine, tension headache, headache, sinusitis and other (rule out ectopic ) Most likely diagnosis given after review of the tests above:: First trimester Migraine , threatened Admission Indicated Admission indicated?: not indicated Explain why admission is indicated or not indicated:: Can be discharged. Will give benadryl and reglan. To follow up with OBGYN Admission Request Was there a request for admission?: No Disposition Plan Disposition Plan: Discharge Discharge Attestation Discharge Attestation: The patient and all family members were given an opportunity to ask questions and understood the discharge instructions. Discharge instructions specifically effects, indications for sooner follow up or return to the emergency department, and the expected course of current diagnosis. Patient condition: Stable Discharge Plan Plan Patient Disposition: HOME (Self Care) Patient condition on transfer: Stable Prescriptions/Referrals Prescriptions/Med Rec: New metoclopramide HCl [Reglan] 10 mg tablet 10 mg PO Q6H PRN (Reason: headache) Qty: 30 0RF diphenhydramine HCl [Allergy (diphenhydramine)] 25 mg capsule 25 mg PO TID PRN (Reason: headache) Qty: 30 0RF Referrals: Julio C Miller MD [Primary Care Provider] - In 1 week Problem List Clinical Impression: First trimester , Migraine, , threatened, Mass of right ovary Patient/Caregiver Discharge Instructions Discharge Activity: activity as tolerated and other Other Activity Instructions:: Pelvic rest, 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
[2024-10-18 13:18] VITALS: BP 102/65; PULSE 66; RESP 16; TEMP 36.5; O2SAT 97
== END 2024-10-18 14:15 | disposition home or self-care (01) ==
PROVIDERS: Nurse Practitioner Primary Care; Emergency Provider Emergency Medicine; PCP Obstetrics & Gynecology
DX: O20.0 Threatened abortion (principal); O99.891 Other specified diseases and conditions complicating pregnancy; N83.8 Other noninflammatory disorders of ovary, fallopian tube and broad ligament; G43.909 Migraine, unspecified, not intractable, without status migrainosus; Z3A.08 8 weeks gestation of pregnancy
CPT/HCPCS: 36415; 76801; 80053; 81001; 84702; 85025; 86900; 86901; 96372; 99284; J2765; A9270

== ENCOUNTER 2025-03-21 13:21 | Outpatient (AMB) | payer MEDICAID, SELFPAY ==
--- NOTE | 2025-03-21 13:39 | AMB.OBINITIA ---
Vital Signs 03/21/25 13:40 Height 1.73 m Height Method Stated Weight 87.997 kg Weight Measurement Method Standing Scale BMI 29.4 BP 124/77 Blood Pressure Source Automatic Cuff Blood Pressure Location Left Upper Arm Position Sitting Respiration 16 Pulse 84 Pulse Source Monitor Temp 97.6 F Temp Source Oral Pulse Oximetry (%) 97 Oxygen Delivery Method Room Air Allergies/Home Meds Allergies & Medications Allergies acetaminophen (From Vicodin) Allergy (Mild, Verified 03/21/25 13:41) Vomiting hydrocodone (From Vicodin) Allergy (Mild, Verified 03/21/25 13:41) Vomiting Medication Reconciliation diphenhydramine HCl 25 mg capsule (Allergy (diphenhydramine)) 25 mg PO TID PRN headache #30 caps 10/18/24 [Rx Confirmed 03/21/25] metoclopramide HCl 10 mg tablet (Reglan) 10 mg PO Q6H PRN headache #30 tabs 10/18/24 [Rx Confirmed 03/21/25] Intake Visit Data Collection New Patient or Established: Established Patient (seen at [facility] within 3 years) Reason for Visit:: TRANSFER INITIAL CARE Seen by Clinical Staff ONLY (RN/MA): No Hospitalist Physician Required: No Do You Feel Safe at Home: Yes Authorities Contacted: N/A PCP or OBGYN visit in last 3 months: Yes Hx Now: Yes Are you currently on any form of Control: No Last menstrual period: 08/10/24 Pain Present Currently: No Pain Scale Used: Parker-Bush/Numerical Pain scale:: 0 Smoking Status Smoking Status: Never smoker Questionnaires Covid-19 Vaccine Questionnaire Has patient been vacinated for Covid-19 Have you been vacinated for Covid-19: No PHQ-9 PHQ-2 Over the last 2 weeks, how often have you been bothered by any of the following problems? 1. Little interest or pleasure in doing things: not at all 2. Feeling down, depressed, or hopeless: not at all Total score: 0 PHQ-9 3. Trouble falling or staying asleep, or sleeping too much: Not at all 4. Feeling tired or having little energy: Not at all 5. Poor appetite or overeating: Not at all 6. Feeling bad about yourself - or that you are a failure or have let yourself or your family down: Not at all 7. Trouble concentrating on things, such as reading the newspaper or watching television: Not at all 8. Moving or speaking so slowly that other people could have noticed? - Or the opposite - being so fidgety or restless that you have been moving around a lot more than usual: not at all 9. Thoughts that you would be better off or of hurting yourself in some way: Not at all Total score: 0 Source: Developed by Drs. Guido Burgess, Gina Mota, Con Cabrera and colleagues, with an educational ramy from [employer]. Depression screen completed yes Social History Tobacco History Smoking Status: Never smoker Alcohol History Alcohol Intake: Never Domestic Abuse History Do You Feel Safe at Home: Yes History of Present Illness HPI Narrative 39-year-old 5 para 0 SAB 4. Patient has a history of ectopic x 3. And a right salpingectomy her last ectopic. Patient denies existence of chronic illness. She has a history of migraines and anemia. Patient has a history of smoking but she is stopped now. Denies drug and alcohol use. She is taking prenatals and Tylenol she is also taking vitamin B and vitamin C. History of heartburn and nausea with the . The father the baby is involved. Denies any existence of STDs. And patient has an appointment at [facility] for her history. And that ultrasound results are pending. Denies bleeding, denies leaking, denies contractions. And patient reports that the baby is moving. History of an abnormal Pap with this . 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 Patient needs a colpo patient is O+, antibody screen negative, RPR nonreactive, rubella immune, hepatitis B negative, hep C negative, HIV negative, GC and Chlamydia were negative. NIPT was negative and cystic fibrosis screen was negative. 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 39-year-old 6 para 5 ectopic 3 SAB 1 patient had a right salpingectomy. She is taking prenatals. And come and [id number] medication for migraines and nausea. History of abnormal Pap. Patient needs colpo . Patient has a follow-up ultrasound coming with [facility]. She was being seen for AMA and her history Follow-up on [facility] appointment. Reviewed labs with patient. Discussed labor precautions. Continue prenatals. Return in 2 weeks for OB check Follow-up on [facility] appointment. Reviewed labs with patient. Discussed labor precautions. Continue prenatals. Return in 2 weeks for OB check. TDAP [place] Menstrual History Menstrual reliability: definite Flow: normal Menstrual regularity: irregular Monthly: No Age at menarche: 12 On control pills at conception: No Associated symptoms (LMP): Denies amenorrhea, nausea, vomiting, fatigue, breast tenderness, urinary frequency, irritability, bloating or other OB History : 5 Hx Total # of Abortions (Spontaneous & Elective): 4 Infection History & Risk Evaluation History of STDs: none Genetic Screening & History Genetic Screening/Teratology Counseling - Includes patient, baby's father, or anyone in either family with: 1. Patient's age 35 years or older as of estimated date of delivery: Yes 2. Thalassemia (Sudanese, Maltese, Mediterranean, or Background); MCV less than 80: No 3. Neural Tube Defect (Meningomyelocele, Spina Bifida, or Anencephaly): No 4. Congenital Heart Defect: No 5. Down Syndrome: No 6. Terry-Sachs (Ashkenazi Judaism, Cajun, Finnish Pitcair[place] Islander): No 7. Mayco Disease (Ashkenazi Judaism): No 8. Familial Dysautonomia (Ashkenazi Judaism): No 9. Sickle Cell Disease or Trait (): No 10. Hemophilia or other blood disorders: No 11. Muscular Dystrophy: No 12. Cystic Fibrosis: No 13. Creek's Chorea: No 14. Mental Retardation/Autism: No 15. Other inherited genetic or chromosomal disorder: No 16. Maternal Metabolic Disorder (EG,TYPE 1 Diabetes, PKU): No 17. Patient or baby's father had a child with defects not listed above: No 18. Recurrent loss or a stillbirth: No 19. Medications (including supplements, vitamins, herbs or otc drugs)/illicit/recreational drugs/alcohol since last menstrual period: No 20. Any other: No Infection History 1. Live with someone with TB or exposed to TB: No 2. Rash or viral illness since last menstrual period: No 3. Hepatitis B,C: No Other (see comments) Source: [employer] Review of Systems Review of Systems Systems Reviewed: All systems reviewed, normal except as documented Constitutional Constitutional: Denies fatigue Gastrointestinal Gastrointestinal: Denies bloating, Denies nausea and Denies vomiting Genitourinary Genitourinary: Denies amenorrhea and Denies urinary frequency Psychiatric Psychiatric: Denies irritability Endocrine Endocrine: Denies fatigue Exam General Limitations: no limitations General Appearance: alert, in no apparent distress, comfortable, cooperative, healthy appearing, well developed and well groomed Head Head exam: atraumatic, normocephalic and normal inspection ENT ENT exam: Present normal exam, normal oropharynx and mucous membranes moist Resp Respiratory exam: Present normal lung sounds bilaterally Card Cardiovascular exam: Present regular rate, normal rhythm and normal heart sounds Abdominal Abdominal exam: Present soft and normal bowel sounds Psych Psychiatric exam: Present normal affect and normal mood Office Procedures OBC Clinic LOC & Office Proc's Nursing/Assessment Patient Status: Established Patient OB Clinic Nursing Assessment: Medication Reconciliation, Update PMH in EMR and Vital Signs OB Clinic Coordination of Care: AMA, Complex Care and Chronic Disease 1-5, Consent,records obtained, informed consent, Education Simp Pt/Fam, 1 Ins Authorization, Lab and Imaging orders, Results/Orders obtained and Staff clarify orders Special Needs: Heart tones Established Patient Charge Established Patient Point Assignment: 170 Established Patient Point Charge: EP Level 5 (160-above) Injection/Vaccine Admin SQ Im Injection: Yes Immunizations diphth,pertus(acell),tetanus 2.5 Lf unit-8 mcg-5 Lf/0.5mL IM syringe Performing Provider: Leticia Flowers CNM Performing Location: [facility] Administered by: Saskia Cristobal MA on 03/21/25 14:29 Dose Route Admin Location Dispensed Lot Number Expiration Date Package NDC NDC Credit Counselor 0.5 mL IM Left Deltoid 0.5 mL [id number] 05/13/27 47277-499-27 [id number] [employer] VIS Given Date VIS Provided VIS Publication Date 03/21/25 Single Vaccine 24 Eligibility Eligibility Date Funding Source [facility] Assessment & Plan Diagnosis / Problem List (1) Encounter for supervision of high risk in second trimester, antepartum: Status: Acute (2) Advanced maternal age (AMA) in : Status: Acute Plan Tdap next visit. colpo . Follow-up with maternal- medicine appointment. Discussed labor precautions. Increase fluids. Increase fluids. And return in 2 weeks OB check Additional Plan Follow Up: 2 Weeks (obc)
[2025-03-21 13:40] VITALS: BP 124/77; PULSE 84; RESP 16; TEMP 36.4; O2SAT 97; BMI 29.4
== END 2025-03-21 14:10 | disposition home or self-care (01) ==
LOC: HODSOBC 13:21
PROVIDERS: Supervising Provider Advanced Practice Midwife; Visit Provider Advanced Practice Midwife
DX: O09.523 Supervision of elderly multigravida, third trimester (principal); O09.43 Supervision of pregnancy with grand multiparity, third trimester; Z3A.30 30 weeks gestation of pregnancy; Z23 Encounter for immunization
CPT/HCPCS: 90471; 90715; 96372; 99215; G0463

== ENCOUNTER 2025-04-19 08:23 | Outpatient (AMB) | payer MEDICAID, SELFPAY ==
[2025-04-19 08:25] VITALS: BP 121/76; PULSE 85; RESP 18; TEMP 36.4; O2SAT 97; BMI 30.8
--- NOTE | 2025-04-19 08:25 | OBCLNT_ITS ---
Vital Signs 04/19/25 08:25 Height 1.73 m Height Method Stated Weight 92.193 kg Weight Measurement Method Standing Scale BMI 30.8 BP 121/76 Blood Pressure Source Automatic Cuff Blood Pressure Location Right Upper Arm Position Sitting Respiration 18 Pulse 85 Pulse Source Monitor Temp 97.6 F Temp Source Temporal Artery Scan Pulse Oximetry (%) 97 Oxygen Delivery Method Room Air Allergies/Home Meds Allergies & Medications Allergies hydrocodone (From Vicodin) Allergy (Mild, Verified 03/21/25 13:41) Vomiting Intake Visit Data Collection New Patient or Established: Established Patient (seen at [facility] within 3 years) 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 Do You Feel Safe at Home: Yes Authorities Contacted: N/A PCP or OBGYN visit in last 3 months: Yes Date of Last PCP or OBGYN visit: 03/21/25 Hx Now: Yes Are you currently on any form of Control: No Pain Present Currently: No Pain Scale Used: Parker-Bush/Numerical Pain scale:: 0 Smoking Status Smoking Status: Never smoker Immunizations Flu Vaccine in the Last 12 Months: No Flu Vaccine Exclusion Criteria: No Exclusion Criteria Questionnaires Covid-19 Vaccine Questionnaire Has patient been vacinated for Covid-19 Have you been vacinated for Covid-19: Yes PHQ-9 PHQ-2 Over the last 2 weeks, how often have you been bothered by any of the following problems? 1. Little interest or pleasure in doing things: not at all 2. Feeling down, depressed, or hopeless: not at all Total score: 0 PHQ-9 3. Trouble falling or staying asleep, or sleeping too much: Not at all 4. Feeling tired or having little energy: Not at all 5. Poor appetite or overeating: Not at all 6. Feeling bad about yourself - or that you are a failure or have let yourself or your family down: Not at all 7. Trouble concentrating on things, such as reading the newspaper or watching television: Not at all 8. Moving or speaking so slowly that other people could have noticed? - Or the opposite - being so fidgety or restless that you have been moving around a lot more than usual: not at all 9. Thoughts that you would be better off or of hurting yourself in some way: Not at all Total score: 0 If you checked off any problems, how difficult have these problems made it for you to do your work, take care of things at home, or get along with other people?: not difficult at all Source: Developed by Drs. Guido Burgess, Gina Mota, Con Cabrera and colleagues, with an educational ramy from [employer]. 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 39-year-old 6 para 5 ectopic 3 SAB 1 patient had a right salpingectomy. She is taking prenatals. And come and quid-wue-zqarwuf medication for migraines and nausea. History of abnormal Pap. Patient needs colpo . Patient has a follow-up ultrasound coming with [facility]. She was being seen for AMA and her history Follow-up on MFM appointment. Reviewed labs with patient. Discussed labor precautions. Continue prenatals. Return in 2 weeks for OB check Follow-up on MFM appointment . Reviewed labs with patient. Discussed labor precautions. Continue prenatals. Return in 2 weeks for OB check. TDAP [place] 04/19/25 -?-?-?-?-?-?-?-?-?-?-?-?- 34w 5d 92.193 kg 121/76 absent cephalic 34 145 active mfm appointment in AM . Reports good movement. Denies leaking, bleeding, contractions. patient plans to deliver at [facility], her family live in [place] Discussed labor precautions. Discussed kick count. Then I discussed both options. Return in a week for OB check and GBS. Patient was advised to find a practice that would not allow have her to transfer late in the Discussed labor precautions. Discussed kick count. Then I discussed both options. Return in a week for OB check and GBS. Patient was advised to find a practice that would not allow have her to transfer late in the , pat ient hd TDAP last visit MOIRA Calculator Estimated Delivery Date Method Current WG Current Estimate 05/26/25 Ultrasound #2 34w 5d Other Estimates 05/17/25 LMP (Certain) 36w 0d 05/21/25 Ultrasound #1 35w 3d 05/26/25 Manual 34w 5d final MOIRA: 05/16 07/10 Notes Visit Date: 03/21/25 Last Updated by: Leticia Flowers CNM OB panel: 1 hr gtt:wnl, PAP: ASCUS/HPV+, colpo PP, AFP-O+,ABS-, RPR::NR, rub imm, HBSAG-,HIV-, HC-, GC/CT-QUAD screen- Office Procedures OBC Clinic LOC & Office Proc's Nursing/Assessment Patient Status: Established Patient OB Clinic Nursing Assessment: Medication Reconciliation, Update PMH in EMR and Vital Signs OB Clinic Coordination of Care: Complex Care and Chronic Disease 1-5, Education Complex Pt/Fam, Consent,records obtained, informed consent and Staff clarify orders Special Needs: Heart tones Established Patient Charge Established Patient Point Assignment: 120 Established Patient Point Charge: EP Level 4 (120-155) Assessment & Plan Diagnosis / Problem List (1) Advanced maternal age (AMA) in : Status: Acute (2) Encounter for supervision of high risk in second trimester, antepartum: Status: Acute Plan Discussed kick count twice a day. Reviewed labor precautions. Discussed breech ascus exercises. Continue prenatals. Increase fluids. Return in a week OB check and GBS Additional Plan Follow Up: 1 Week (OBC)
== END 2025-04-19 09:16 | disposition home or self-care (01) ==
LOC: HODSOBC 08:23
PROVIDERS: Supervising Provider Advanced Practice Midwife; Visit Provider Advanced Practice Midwife
DX: O09.523 Supervision of elderly multigravida, third trimester (principal); O09.43 Supervision of pregnancy with grand multiparity, third trimester; Z3A.34 34 weeks gestation of pregnancy; Z88.5 Allergy status to narcotic agent
CPT/HCPCS: 99214; G0463

== ENCOUNTER 2025-04-28 08:11 | Outpatient (AMB) | payer MEDICAID, SELFPAY ==
--- NOTE | 2025-04-28 08:22 | AMB.OBVISIT ---
Vital Signs 04/28/25 08:23 Height 1.73 m Height Method Stated Weight 93.157 kg Weight Measurement Method Standing Scale BMI 31.1 BP 119/75 Blood Pressure Source Automatic Cuff Blood Pressure Location Left Upper Arm Position Sitting Respiration 14 Pulse 77 Pulse Source Monitor Temp 97.6 F Temp Source Oral Pulse Oximetry (%) 96 Oxygen Delivery Method Room Air Allergies/Home Meds Allergies & Medications Allergies hydrocodone (From Vicodin) Allergy (Mild, Verified 04/28/25 08:23) Vomiting Medication Reconciliation No Known Home Medications 04/28/25 [History Confirmed 04/28/25] Intake Visit Data Collection New Patient or Established: Established Patient (seen at 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 Do You Feel Safe at Home: Yes Authorities Contacted: N/A PCP or OBGYN visit in last 3 months: Yes Hx Now: Yes Are you currently on any form of Control: No Pain Present Currently: No Pain Scale Used: Parker-Bush/Numerical Pain scale:: 0 Smoking Status Smoking Status: Never smoker Immunizations Flu Vaccine in the Last 12 Months: Yes Flu Vaccine Exclusion Criteria: No Exclusion Criteria Questionnaires Covid-19 Vaccine Questionnaire Has patient been vacinated for Covid-19 Have you been vacinated for Covid-19: Yes PHQ-9 PHQ-2 Over the last 2 weeks, how often have you been bothered by any of the following problems? 1. Little interest or pleasure in doing things: not at all 2. Feeling down, depressed, or hopeless: not at all Total score: 0 PHQ-9 3. Trouble falling or staying asleep, or sleeping too much: Not at all 4. Feeling tired or having little energy: Not at all 5. Poor appetite or overeating: Not at all 6. Feeling bad about yourself - or that you are a failure or have let yourself or your family down: Not at all 7. Trouble concentrating on things, such as reading the newspaper or watching television: Not at all 8. Moving or speaking so slowly that other people could have noticed? - Or the opposite - being so fidgety or restless that you have been moving around a lot more than usual: not at all 9. Thoughts that you would be better off or of hurting yourself in some way: Not at all Total score: 0 Source: Developed by Drs. Guido Burgess, Gina Mota, Con Cabrera and colleagues, with an educational ramy from [employer]. 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 39-year-old 6 para 5 ectopic 3 SAB 1 patient had a right salpingectomy. She is taking prenatals. And come and kppz-hcb-zestywb medication for migraines and nausea. History of abnormal Pap. Patient needs colpo . Patient has a follow-up ultrasound coming with [facility]. She was being seen for AMA and her history Follow-up on MFM appointment. Reviewed labs with patient. Discussed labor precautions. Continue prenatals. Return in 2 weeks for OB check Follow-up on MFM appointment. Reviewed labs with patient. Discussed labor precautions. Continue prenatals. Return in 2 weeks for OB check. TDAP NV 04/19/25 <del>?</del> 34w 5d 92.193 kg 121/76 absent cephalic 34 145 active mfm appointment in AM. Reports good movement. Denies leaking, bleeding, contractions. patient plans to deliver at [facility], her family live in [place] Discussed labor precautions. Discussed kick count. Then I discussed both options. Return in a week for OB check and GBS. Patient was advised to find a practice that would not allow have her to transfer late in the Discussed labor precautions. Discussed kick count. Then I discussed both options. Return in a week for OB check and GBS. Patient was advised to find a practice that would not allow have her to transfer late in the , patient paco TDTAVON last visit 04/28/25 <del>?</del> 36w 0d 93.157 kg 119/75 absent breech 36 147 active Baby is still breech. Reports good movement. Denies leaking or bleeding. No contractions Discussed labor precautions. Discussed breech exercises. Kick count twice a day. I will schedule with OB because of breech presentation. GBS today MOIRA Calculator Estimated Delivery Date Method Current WG Current Estimate 05/26/25 Ultrasound #2 36w 0d Other Estimates 05/17/25 LMP (Certain) 37w 2d 05/21/25 Ultrasound #1 36w 5d 05/26/25 Manual 36w 0d final MOIRA: 05/26/25. MFM 04/20:34w6/61%,breech Notes Visit Date: 03/21/25 Last Updated by: Leticia Flowers CNM OB panel: 1 hr gtt:wnl, PAP: ASCUS/HPV+, colpo PP, AFP-O+,ABS-, RPR::NR, rub imm, HBSAG-,HIV-, HC-, GC/CT-QUAD screen- Office Procedures OBC Clinic LOC & Office Proc's Nursing/Assessment Patient Status: Established Patient OB Clinic Nursing Assessment: Medication Reconciliation, Update PMH in EMR and Vital Signs OB Clinic Coordination of Care: Complex Care and Chronic Disease 1-5, Consent,records obtained, informed consent, Education Simp Pt/Fam, 1 Ins Authorization, Lab and Imaging orders, Results/Orders obtained and Staff clarify orders Special Needs: Heart tones Miscellaneous Interventions: Culture Specimen Collection Established Patient Charge Established Patient Point Assignment: 165 Established Patient Point Charge: EP Level 5 (160-above) Assessment & Plan Diagnosis / Problem List (1) Advanced maternal age (AMA) in : Status: Acute (2) Encounter for supervision of high risk in second trimester, antepartum: Status: Acute Plan Schedule with OB next visit because of breech. GBS. Discussed labor precautions. Kick count and danger signs and symptoms associated with ROM in a breech presentation. Discussed breech exercises Additional Plan Follow Up: 1 Week (obc)
[2025-04-28 08:23] VITALS: BP 119/75; PULSE 77; RESP 14; TEMP 36.4; O2SAT 96; BMI 31.1
== END 2025-04-28 09:11 | disposition home or self-care (01) ==
PROVIDERS: Supervising Provider Advanced Practice Midwife; Visit Provider Advanced Practice Midwife
DX: O09.523 Supervision of elderly multigravida, third trimester (principal); O09.893 Supervision of other high risk pregnancies, third trimester; O32.1XX0 Maternal care for breech presentation, not applicable or unspecified; O09.43 Supervision of pregnancy with grand multiparity, third trimester; O09.13 Supervision of pregnancy with history of ectopic pregnancy, third trimester; Z3A.36 36 weeks gestation of pregnancy; Z36.85 Encounter for antenatal screening for Streptococcus B; Z90.79 Acquired absence of other genital organ(s); Z88.5 Allergy status to narcotic agent
CPT/HCPCS: 99215; G0463

== ENCOUNTER 2025-05-05 14:56 | Outpatient (AMB) | payer MEDICAID, SELFPAY ==
[2025-05-05 15:09] VITALS: BP 128/72; PULSE 80; RESP 16; TEMP 36.6; O2SAT 98; BMI 31.5
--- NOTE | 2025-05-05 15:09 | AMB.OBPNC ---
Vital Signs 05/05/25 15:09 Height 1.73 m Height Method Stated Weight 94.347 kg Weight Measurement Method Standing Scale BMI 31.5 BP 128/72 Blood Pressure Source Automatic Cuff Blood Pressure Location Left Upper Arm Position Sitting Respiration 16 Pulse 80 Pulse Source Monitor Temp 97.8 F Temp Source Oral Pulse Oximetry (%) 98 Oxygen Delivery Method Room Air Allergies/Home Meds Allergies & Medications Allergies No Known Drug Allergies Allergy (Verified 05/23/25 10:49) Medication Reconciliation vits no.130-ferrous fum 27 mg iron-folic acid 800 mcg tablet ( Vitamin) 1 tab PO QDAY 05/23/25 [History Confirmed 05/23/25] hydrocodone 5 mg-acetaminophen 325 mg tablet 1 tab PO Q4HR PRN Patient rated pain 7 to 8 #10 tabs 05/25/25 [Rx] ibuprofen 400 mg tablet 800 mg (2 x 400 mg) PO Q8HR PRN Pain Scale 4-6 (Moderate #30 tabs 05/25/25 [Rx] Immunizations Immunizations Flu Vaccine in the Last 12 Months: No Flu Vaccine Exclusion Criteria: Refused by Patient Care OB Visit Log OB Flowsheet Initial Weight: Not Recorded Date <del>?</del> EGA Weight BP Alb Glu CTX Pres Fundal ht FHR Mov Dilation Station Effacement Hx Notes Visit Note 03/21/25 <del>?</del> 30w 4d 87.997 kg 124/77 absent unknown 30 145 active OB transfer from [facility]. 39-year-old 6 para 5 ectopic 3 SAB 1 patient had a right salpingectomy. She is taking prenatals. And come and cfci-ath-zlufynt medication for migraines and nausea. History of abnormal Pap. Patient needs colpo . Patient has a follow-up ultrasound coming with [facility]. She was being seen for AMA and her history Follow-up on M appointment. Reviewed labs with patient. Discussed labor precautions. Continue prenatals. Return in 2 weeks for OB check Follow-up on M appointment. Reviewed labs with patient. Discussed labor precautions. Continue prenatals. Return in 2 weeks for OB check. TDAP NV 04/19/25 <del>?</del> 34w 5d 92.193 kg 121/76 absent cephalic 34 145 active mfm appointment in AM. Reports good movement. Denies leaking, bleeding, contractions. patient plans to deliver at [facility], her family live in [place] Discussed labor precautions. Discussed kick count. Then I discussed both options. Return in a week for OB check and GBS. Patient was advised to find a practice that would not allow have her to transfer late in the Discussed labor precautions. Discussed kick count. Then I discussed both options. Return in a week for OB check and GBS. Patient was advised to find a practice that would not allow have her to transfer late in the , patient hd TDAP last visit 04/28/25 <del>?</del> 36w 0d 93.157 kg 119/75 absent breech 36 147 active Baby is still breech. Reports good movement. Denies leaking or bleeding. No contractions Discussed labor precautions. Discussed breech exercises. Kick count twice a day. I will schedule with OB because of breech presentation. GBS today 05/05/25 <del>?</del> 37w 0d 94.347 kg 128/72 absent breech 38 146 active - Alicia Powers is a patient presenting for evaluation of breech presentation. - She reports the baby is currently in breech position (upside down). - Patient has been performing exercises taught by Leticia to encourage the baby to turn. - She notes increased movement but is uncertain whether the baby has turned from breech position. - Patient expresses desire to explore all options to avoid section, specifically requesting external cephalic version (ECV). - She plans to deliver at [facility] in [place] to be near her brother and family. - Patient reports difficulty establishing care in [place], stating providers told her it was too late in her to accept new patients. - She has already pre-registered for delivery at [facility]. - Patient had one previous visit to [facility] for labor pains but was not kept for delivery. - She expresses concern about taking unnecessary risks during delivery. - Schedule ECV (external cephalic version) procedure in OR with anesthesia team as backup option - Patient to contact [facility] during regular office hours to establish care for delivery in [place] if she desires - Schedule appointment here as backup if unable to establish care at [facility] - Print out medical records for transfer if patient successfully establishes care in [place] - Patient to research ECV risks further and ask questions at next appointment - Follow up appointment scheduled in one week MOIRA Calculator Estimated Delivery Date Method Current WG Current Estimate 05/26/25 Ultrasound #2 42w 0d Other Estimates 05/17/25 LMP (Certain) 43w 2d 05/21/25 Ultrasound #1 42w 5d 05/26/25 Manual 42w 0d final MOIRA: 05/26/25. MFM 04/20:34w6/61%,breech Notes Visit Date: 05/05/25 Last Updated by: Kael Cabral MD Detailed Risks/Benefits/Alternatives (R/B/A): External Cephalic Version (ECV): - Risks: transient heart rate abnormalities, placental abruption, umbilical cord entanglement, labor, rupture of membranes, need for emergent delivery, procedure failure (ECV unsuccessful in ~40% of cases) - Benefits: potential for vaginal delivery, avoidance of major abdominal surgery, shorter maternal recovery, lower risk of surgical complications - Alternatives: planned section, expectant management (rarely successful for persistent breech at term) Section (): - Risks: surgical complications (infection, hemorrhage, thromboembolism, injury to adjacent organs), longer maternal recovery, increased risk in future pregnancies (placenta previa/accreta, uterine rupture) - Benefits: controlled delivery environment, reduced risk of trauma for breech fetus, avoids risks associated with failed ECV - Alternatives: ECV attempt, vaginal breech delivery (rarely recommended due to increased risk) Visit Date: 03/21/25 Last Updated by: Leticia Flowers CNM OB panel: 1 hr gtt:wnl, PAP: ASCUS/HPV+, colpo PP, AFP-O+,ABS-, RPR::NR, rub imm, HBSAG-,HIV-, HC-, GC/CT-QUAD screen- Office Procedures OBC Clinic LOC & Office Proc's Nursing/Assessment Patient Status: Established Patient OB Clinic Nursing Assessment: Medication Reconciliation, Update PMH in EMR and Vital Signs OB Clinic Coordination of Care: AMA, Complex Care and Chronic Disease 1-5, Consent,records obtained, informed consent, Education Simp Pt/Fam, 1 Ins Authorization, Lab and Imaging orders, Results/Orders obtained and Staff clarify orders Special Needs: Heart tones Established Patient Charge Established Patient Point Assignment: 170 Established Patient Point Charge: EP Level 5 (160-above) Assessment & Plan Diagnosis / Problem List (1) Breech presentation of fetus: Status: Acute Qualifiers: Fetus number: single or unspecified fetus Qualified Code(s): O32.1XX0 - Maternal care for breech presentation, not applicable or unspecified Plan Problem List - Breech presentation Assessment Breech presentation at term with head in fundal position and buttocks presenting, confirmed by ultrasound examination showing normal heart rate of 146 bpm. Patient has been performing exercises to encourage version without success and reports increased movement but uncertain if version has occurred. Detailed Risks/Benefits/Alternatives (R/B/A): External Cephalic Version (ECV): - Risks: transient heart rate abnormalities, placental abruption, umbilical cord entanglement, labor, rupture of membranes, need for emergent delivery, procedure failure (ECV unsuccessful in ~40% of cases) - Benefits: potential for vaginal delivery, avoidance of major abdominal surgery, shorter maternal recovery, lower risk of surgical complications - Alternatives: planned section, expectant management (rarely successful for persistent breech at term) Section (): - Risks: surgical complications (infection, hemorrhage, thromboembolism, injury to adjacent organs), longer maternal recovery, increased risk in future pregnancies (placenta previa/accreta, uterine rupture) - Benefits: controlled delivery environment, reduced risk of trauma for breech fetus, avoids risks associated with failed ECV - Alternatives: ECV attempt, vaginal breech delivery (rarely recommended due to increased risk) Plan - Schedule ECV (external cephalic version) procedure in OR with anesthesia team as backup option - Patient to contact [facility] during regular office hours to establish care for delivery in [place] if she desires - Schedule appointment here as backup if unable to establish care at [facility] - Print out medical records for transfer if patient successfully establishes care in [place] - Patient to research ECV risks further and ask questions at next appointment - Follow up appointment scheduled in one week 1. Progress Reviewed gestational age, growth, and heart rate (146 bpm, normal). Patient reports increased movement but uncertain if breech presentation has resolved. Ultrasound confirmed breech presentation with head in fundal position and buttocks presenting. Planned frequent visits (every 2 weeks until 36 weeks, then weekly). 2. Instructed patient to monitor movements and report decreases immediately. 3. Testing Counseled on routine third-trimester labs per guidelines. Discussed potential need for ultrasound or monitoring based on risk factors. 4. Preeclampsia Precaution Educated on preeclampsia signs: severe headache, vision changes, right upper quadrant pain, sudden swelling. Advised urgent reporting of symptoms and discussed blood pressure monitoring if high risk. 5. Labor Precautions Reviewed labor signs: regular contractions, pelvic pressure, back pain, bleeding, or fluid leakage. Instructed to seek immediate care for these symptoms. 6. Lifestyle and Delivery Preparation Reinforced vitamins, nutrition, and safe activity. Discussed plan options including external cephalic version (ECV) versus section for breech presentation. Counseled on ECV risks including placental abruption requiring emergent delivery. Patient desires delivery at [facility] in [place] but needs to establish care there. Advised patient to contact [facility] during regular office hours to arrange scheduled ECV procedure. Backup appointment scheduled at current facility. 7. Psychosocial Support Assessed emotional well-being and offered resources for mental health or parenting support.
== END 2025-05-05 15:41 | disposition home or self-care (01) ==
LOC: HODSOBC 14:56
PROVIDERS: Supervising Provider Obstetrics & Gynecology; Visit Provider Obstetrics & Gynecology
DX: O09.893 Supervision of other high risk pregnancies, third trimester (principal); O32.1XX0 Maternal care for breech presentation, not applicable or unspecified; O09.523 Supervision of elderly multigravida, third trimester; Z3A.37 37 weeks gestation of pregnancy; Z28.21 Immunization not carried out because of patient refusal
CPT/HCPCS: 99215; G0463

== ENCOUNTER 2025-05-17 15:03 | Outpatient (AMB) | payer MEDICAID, SELFPAY ==
--- NOTE | 2025-05-17 15:40 | OBCLNT_ITS ---
Vital Signs 05/17/25 15:42 Height 1.73 m Height Method Stated Weight 93.667 kg Weight Measurement Method Standing Scale BMI 31.3 BP 122/74 Blood Pressure Source Automatic Cuff Blood Pressure Location Left Upper Arm Position Sitting Respiration 14 Pulse 74 Pulse Source Monitor Temp 98.1 F Temp Source Oral Pulse Oximetry (%) 97 Oxygen Delivery Method Room Air Allergies/Home Meds Allergies & Medications Allergies No Known Drug Allergies Allergy (Verified 05/23/25 10:49) Medication Reconciliation vits no.130-ferrous fum 27 mg iron-folic acid 800 mcg tablet ( Vitamin) 1 tab PO QDAY 05/23/25 [History Confirmed 05/23/25] hydrocodone 5 mg-acetaminophen 325 mg tablet 1 tab PO Q4HR PRN Patient rated pain 7 to 8 #10 tabs 05/25/25 [Rx] ibuprofen 400 mg tablet 800 mg (2 x 400 mg) PO Q8HR PRN Pain Scale 4-6 (Moderate #30 tabs 05/25/25 [Rx] Immunizations Immunizations Flu Vaccine in the Last 12 Months: No Flu Vaccine Exclusion Criteria: Refused by Patient Care OB Visit Log OB Flowsheet Initial Weight: Not Recorded Date -?-?-?-?-?-?-?-?-?-?-?-?- EGA Weight BP Alb Glu CTX Pres Fundal ht FHR Mov Dilation Station Effacement Hx Notes Visit Note 03/21/25 -?-?-?-?-?-?-?-?-?-?-?-?- 30w 4d 87.997 kg 124/77 absent unknown 30 145 active OB transfer from [facility]. 39-year-old 6 para 5 ectopic 3 SAB 1 patient had a right salpingectomy. She is taking prenatals. And come and mrgx-iiy-awlooic medication for migraines and nausea. History of abnormal Pap. Patient needs colpo . Patient has a follow-up ultrasound coming with [facility]. She was being seen for AMA and her history Follow-up on [facility] appointment. Reviewed labs with patient. Discussed labor precautions. Continue prenatals. Return in 2 weeks for OB check Follow-up on [facility] appointment . Reviewed labs with patient. Discussed labor precautions. Continue prenatals. Return in 2 weeks for OB check. TDAP [place] 04/19/25 -?-?-?-?-?-?-?-?-?-?-?-?- 34w 5d 92.193 kg 121/76 absent cephalic 34 145 active mfm appointment in AM. Reports good movement. Denies leaking, bleeding, contractions. patient plans to deliver at [facility], her family live in [place] Discussed labor precautions. Discussed kick count. Then I discussed both options. Return in a week for OB check and GBS. Patient was advised to find a practice that would not allow have her to transfer late in the Discussed labor precautions. Discussed kick count. Then I discussed both options. Return in a week for OB check and GBS. Patient was advised to find a practice that would not allow have her to transfer late in the , patient hd TDAP last visit 04/28/25 -?-?-?-?-?-?-?-?-?-?-?-?- 36w 0d 93.157 kg 119/75 absent breech 36 147 active Baby is still breech. Reports good movement. Denies leaking or bleeding. No contractions Discussed labor precautions. Discussed breech exercises. Kick count twice a day. I will schedule with OB because of breech presentation. GBS today 05/05/25 -?-?-?-?-?-?-?-?-?-?-?-?- 37w 0d 94.347 kg 128/72 absent breech 38 146 active - Alicia Powers is a patient presenting for evaluation of breech presentation. - She reports the baby is currently in b reech position (upside down). - Patient has been performing exercises taught by Leticia to encourage the baby to turn. - She notes increased movement but is uncertain whether the baby has turned from breech position. - Patient expresses desire to explore al l options to avoid section, specifically requesting external cephalic version (ECV). - She plans to deliver at [facility] in [place] to be near her brother and family. - Patient reports difficulty establishin g care in [place], stating providers told her it was too late in her to accept new patients. - She has already pre-registered for satya thacker at [facility]. - Patient had one previous visit to [facility] for labor pains but was not kept for delivery. - She expresses concern about taking unnecessary risks during deliv lianne. - Schedule ECV (external cephalic version) procedure in OR with anesthesia team as backup option - Patient to contact [facility] during regular office hours to establish care for delivery in [place] if she desires - Schedule appointment here as backup if unable to establish care at [facility] - Print out medical records for transfer if patient successfully establishes care in [place] - Patient to research ECV risks further and ask questions at next appointment - Follow up appointment scheduled in one week 05/17/25 -?-?-?-?-?-?-?-?-?-?-?-?- 38w 5d 93.667 kg 122/74 absent breech 39 145 active - Patti Powers is a patient at 38 weeks and 5 days gestation presenting for care with newly discovered breech presentation. - Patient has a history of 3 ectopic pre gnancies and 1 miscarriage, with this being her first term . - Breech presentation was recently ident ified, specifically described as kaelyn breech with legs positioned in front of the belly button. - Patient is interested in attempting ex ternal cephalic version (ECV) to correct the breech presentation. - Due date is May 26. - Patient requested flu vaccine during rocky nuñez's visit. - GBS status is negative. - Schedule section for FridayMay 23 at 12:30 PM for breech presentation - Offer external cephalic version (ECV) prior to section given kaelyn breech presentation - If ECV successful, proceed with induct ion of labor - Order Tdap and influenza vaccines - Patient is at 38+5 weeks gestatio n, due date May 26 - GBS negative MOIRA Calculator Estimated Delivery Date Method Current WG Current Estimate 05/26/25 Ultrasound #2 42w 4d Other Estimates 05/17/25 LMP (Certain) 43w 6d 05/21/25 Ultrasound #1 43w 2d 05/26/25 Manual 42w 4d final MOIRA: 05/16 07/10. MFM 04/20:34w6/61%,breech Notes Visit Date: 05/05/25 Last Updated by: Kael Cabral MD Detailed Risks/Benefits/Alternatives (R/B/A): External Cephalic Version (ECV): - Risks: transient heart rate abnormalities, placental abruption, umbilical cord entanglement, labor, rupture of membranes, need for emergent delivery, procedure failure (ECV unsuccessful in ~40% of cases) - Benefits: potential for vaginal delivery, avoidance of major abdominal surgery, shorter maternal recovery, lower risk of surgical complications - Alternatives: planned section, expectant management (rarely successful for persistent breech at term) Section (): - Risks: surgical complications (infection, hemorrhage, thromboembolism, injury to adjacent organs), longer maternal recovery, increased risk in future pregnancies (placenta previa/accreta, uterine rupture) - Benefits: controlled delivery environment, reduced risk of trauma for breech fetus, avoids risks associated with failed ECV - Alternatives: ECV attempt, vaginal breech delivery (rarely recommended due to increased risk) Visit Date: 03/21/25 Last Updated by: Leticia Flowers CNM OB panel: 1 hr gtt:wnl, PAP: ASCUS/HPV+, colpo PP, AFP-O+,ABS-, RPR::NR, rub imm, HBSAG-,HIV-, HC-, GC/CT-QUAD screen- Office Procedures OBC Clinic LOC & Office Proc's Nursing/Assessment Patient Status: Established Patient OB Clinic Nursing Assessment: Medication Reconciliation, Update PMH in EMR and Vital Signs OB Clinic Coordination of Care: AMA, Complex Care and Chronic Disease 1-5, Co nsent,records obtained, informed consent, Education Simp Pt/Fam, 1 Ins Authorization, Lab and Imaging orders, Results/Orders obtained and Staff clarify orders Special Needs: Heart tones Established Patient Charge Established Patient Point Assignment: 170 Established Patient Point Charge: EP Level 5 (160-above) Assessment & Plan Diagnosis / Problem List (1) Breech presentation of fetus: Status: Acute Qualifiers: Fetus number: single or unspecified fetus Qualified Code(s): O32.1XX0 - Maternal care for breech presentation, not applicable or unspecified Plan Problem List - Breech presentation Assessment 39-week patient with breech presentation (kaelyn breech) requiring delivery planning. Patient is with history of 3 ectopic pregnancies and 1 miscarriage, currently at term gestation. GBS negative status confirmed. Due date is May 26, with patient currently at 38 weeks and 5 days gestation. Plan - Schedule section for FridayMay 23 at 12:30 PM for breech presentation - Offer external cephalic version (ECV) prior to section given kaelyn breech presentation - If ECV successful, proceed with induction of labor - Order Tdap and influenza vaccines - Patient is at 38+5 weeks gestation, due date May 26 - GBS negative 1. Progress Reviewed gestational age, growth, and heart rate. Planned frequent visits (every 2 weeks until 36 weeks, then weekly). 2. Instructed patient to monitor movements and report decreases immediately. 3. Testing Counseled on routine third-trimester labs per guidelines. Discussed potential need for ultrasound or monitoring based on risk factors. 4. Preeclampsia Precaution Educated on preeclampsia signs: severe headache, vision changes, right upper quadrant pain, sudden swelling. Advised urgent reporting of symptoms and discussed blood pressure monitoring if high risk. 5. Labor Precautions Reviewed labor signs: regular contractions, pelvic pressure, back pain, bleeding, or fluid leakage. Instructed to seek immediate care for these symptoms. 6. Lifestyle and Delivery Preparation Reinforced vitamins, nutrition, and safe activity. Discussed plan, pain management, and . Advised on labor preparation (e.g., hospital bag) and expectations. 7. Psychosocial Support Assessed emotional well-being and offered resources for mental health or parenting support.
[2025-05-17 15:42] VITALS: BP 122/74; PULSE 74; RESP 14; TEMP 36.7; O2SAT 97; BMI 31.3
== END 2025-05-17 16:01 | disposition home or self-care (01) ==
PROVIDERS: Supervising Provider Obstetrics & Gynecology; Visit Provider Obstetrics & Gynecology
DX: O09.893 Supervision of other high risk pregnancies, third trimester (principal); O32.1XX0 Maternal care for breech presentation, not applicable or unspecified; O09.523 Supervision of elderly multigravida, third trimester; O09.43 Supervision of pregnancy with grand multiparity, third trimester; O09.13 Supervision of pregnancy with history of ectopic pregnancy, third trimester; O09.293 Supervision of pregnancy with other poor reproductive or obstetric history, third trimester; Z3A.38 38 weeks gestation of pregnancy
CPT/HCPCS: 99215; G0463

== ENCOUNTER 2025-05-23 06:59 | Inpatient (IN) | payer MEDICAID, SELFPAY ==
[2025-05-23] VITALS (16 sets, daily range): BP systolic 75–125; BP diastolic 54–76; PULSE 80–93; RESP 13–21; TEMP 36.6–36.8; O2SAT 96–100; BMI 31.6
--- NOTE | 2025-05-23 07:30 | XR_ITS ---
Examination: Complete OB ultrasound greater than 14 weeks Date and time of exam: May 23, 2025, 0809 hours INDICATIONS: Labor evaluation, breech attempt ECV Findings: Viable intrauterine single fetus with single amniotic sac presentation breech spine maternal right Cardiac motion 119 bpm Placenta fundal grade 2 Umbilical cord insertion seen Amniotic fluid 5.1 cm Cervix 4.0 cm Ovaries obscured by the fetus. Composite estimated gestational age based on BPD, head circumference, abdominal circumference, femur length is 36 weeks 5 days Estimated weight 2939.7 g. Survey of intracranial anatomy, spinal anatomy, abdominal anatomy, four-chamber heart performed with no abnormalities identified. Impression: Viable intrauterine gestation in breech presentation spine maternal right.
[2025-05-23 08:05] LABS: Basophils # (Auto) 0.0 Thou/mm3 (0.0-0.2); Basophils % (Auto) 1 % (0-2.5); Eosinophils # (Auto) 0.3 Thou/mm3 (0.0-0.5); Eosinophils % (Auto) 4 % (0-10); Hematocrit 37.2 % (36.0-46.0); Hemoglobin 12.9 g/dL (12.0-16.0); Immature Granulocytes Auto 0.10 Thou/mm3 (0.00-0.00); Lymphocytes # (Auto) 1.6 Thou/mm3 (1.0-4.8); Lymphocytes % (Auto) 19 % (10-50); Mean Corpuscular HGB Conc 34.7 g/dl (31.0-37.0); Mean Corpuscular Hemoglobin 30.7 pg (25.0-35.0); Mean Corpuscular Volume 89 fL (80-100); Monocytes # (Auto) 0.7 Thou/mm3 (0.0-0.8); Monocytes % (Auto) 8 % (0-12); Neutrophils # (Auto) 5.6 Thou/mm3 (1.8-7.7); Neutrophils % (Auto) 67 % (37-80); Nucleated Red Blood Cell # 0.00 Thou/mm3 (0.00-0.00); Nucleated Red Blood Cell % 0 /100 WBC (0); Platelet Count 220 Thou/mm3 (140-440); RDW Standard Deviation 42.5 fL (36.4-46.3); Red Blood Count 4.20 Miln/mm3 (4.00-5.20); White Blood Count 8.4 Thou/mm3 (3.6-11.0)
--- NOTE | 2025-05-23 08:35 | ESHP_ITS ---
Documentation for date of: 05/23/25 OB Labor/Induct. HPI History of Present Illness Chief complaint: External cephalic version/primary : 5 History of Abortions: Spontaneous and Elective: 4 MOIRA: 05/26/25 History of present illness: Patient is a 39-year-old 5 para 0-0-4-0 with history of 3 ectopic pregnancies and 1 miscarriage presenting to labor and delivery today due to breech presentation. Patient was previously seen in the office and offered delivery by . However she has requested to attempt external cephalic version first before proceeding with a . Patient was counseled extensivelyAnd she has agreed to proceed with the procedure She [facility] and then transferred [facility] to the [facility] Review of Systems Review of Systems Systems Reviewed: All systems reviewed, normal except as documented Meds Home Medications and Allergies Home Medications ?Medication ?Instructions ?Recorded ?Confirmed ?Type No Known Home Medications 04/28/2508/10 History Allergies Allergy/AdvReac Type Severity Reaction Status Date / Time hydrocodone (From Vicodin) Allergy Mild Vomiting Verified 05/17/25 15:42 OB Exam Physical Exam Vital signs: Pulse BP 85 112/66 05/23/25 07:22 05/23/25 07:22 Constitutional Constitutional: no acute distress Routine HEENT Exam Head: Present normocephalic and atraumatic Eye: Present EOMI and PERRL ENT: Present mucous membranes moist Routine Neck Exam Neck: Present supple and trachea midline Routine Cardiovascular Exam Cardiovascular: Present RRR Routine Abdominal Exam Abdominal: Present soft and normoactive bowel sounds Detailed Labor and Delivery Exam Presentation: Breech Baseline heart rate: 145 monitor accelerations: 15x15 monitor decelerations: None Routine Extremities Exam Extremities: Present full ROM Routine Skin Exam Skin: Present intact, dry and warm Routine Neurological Exam Neurological: Present alert, oriented X3 and CN II-XII intact Routine Psychiatric Exam Psychiatric: Present normal affect and normal thought process OB Results Labs 05/23/25 07:30 Labs: Short CBC 05/23/25 Range/Units 07:30 WBC 8.4 (3.6-11.0) Thou/mm3 Hgb 12.9 (12.0-16.0) g/dL Hct 37.2 (36.0-46.0) % Plt Count 220 (140-440) Thou/mm3 OB Assessment & Plan Assessment and Plan (1) Breech presentation of fetus: Status: Acute Assessment and plan: Admit to inpatient labor and delivery IV access, LR at 125 cc/h, CBC, type and screen, RPR Formal ultrasound to confirm breech presentation Planned epidural placement and terbutaline prior to attempting external cephalic version. Patient counseled regarding risks benefits and alternatives: I discussed risks with the patient including the possibility of an unsuccessful version, the potential need for an urgent delivery, heart rate abnormalities such as transient bradycardia, placental abruption, prelabor rupture of membranes, labor, and umbilical cord complications including entanglement or cord prolapse if membranes rupture. I also reviewed the risks of vaginal bleeding, fetomaternal hemorrhage , maternal discomfort during the procedure, transient changes in movement, rare injury, and the possibility of reversion to breech even after a successful version. Patient still wants to proceed. Primary if unsuccessful version (2) Advanced maternal age (AMA) in : Status: Acute
[2025-05-23 08:48] LABS: Syphilis Nonreactive (Nonreactive)
[2025-05-23] MEDS: TERBUTALINE SULF INJ 1 MG/ML VIAL 0.25 MG SC (09:01)
--- NOTE | 2025-05-23 09:02 | PC.NURSE ---
Dr. Cabral in OB OR per MD verbal order give pt terbutaline 0.25 mcg SC x1 now prior to starting external cephalic version (ECV), indication: breech presentation. Portable ultrasound in OR at start of ECV, 901- ECV started, heart tones checked by MD with portable u/s, FHT noted in the 130's bpm, x2 more ECV's done with FHT via portable u/s checked by MD in between noted in the 135's by RN. 903- Dr. Cabral states ECV was not successful and team will proceed to prepare for primary section indication: breech presentation. RN to give pt Ancef 2G IV X1 now prior to started primary secition, indiction:breech presentation.
[2025-05-23] MEDS: ceFAZolin/D5W 2 GM IV 2 GM/100 ML BAG IV (09:10)
--- NOTE | 2025-05-23 09:48 | PD.GYNPROC ---
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 The patient was brought to the operating room and identified using two patient identifiers. She was placed in the supine position and received an epidural anesthetic. heart tones were reassuring at the start of the procedure. The abdomen was prepped with sterile gel, and ultrasound was used to confirm breech presentation. Under real-time ultrasound guidance, an attempted external cephalic version (ECV) was performed. Both posterior and anterior somersault maneuvers were attempted using steady external pressure. Despite multiple efforts, the fetus remained in breech presentation. The version was unsuccessful, and the procedure was converted to delivery. The abdomen and perineum were prepped and draped in sterile fashion. A Martinez catheter was placed for continuous drainage. A Pfannenstiel skin incision was made and carried through the subcutaneous tissue to the rectus fascia. The fascia was incised transversely and dissected off the rectus muscles superiorly and inferiorly. Rectus muscles were at the midline, and the peritoneum was entered bluntly. An Luis Carlos retractor was placed. The bladder flap was developed and retracted inferiorly. A low transverse uterine incision was made. The amniotic sac was ruptured, and clear fluid was expressed. The fetus was still in kaelyn breech presentation, and delivery was performed by breech extraction. The lower extremities, buttocks, torso, and shoulders were delivered, followed by the after-coming head. The umbilical cord was double clamped and divided. The was handed off to the team. Cord gases were obtained. The placenta was delivered manually. The uterine cavity was cleared of clots and membranes. The hysterotomy was closed in two layers using #1 Monocryl ? the first in a running locked fashion, and the second in an imbricated fashion. Hemostasis was confirmed. The Luis Carlos retractor was removed. The peritoneal cavity was irrigated. The rectus muscle was reapproximated with 2-0 stratafix. The rectus fascia was closed using 1-0 PDS stratafix, the subcutaneous tissue reapproximated with 2-0 stratafix, and the skin was closed with 4-0 Monocryl in a subcuticular manner. A Dermabond Prineo dressing was applied. The patient tolerated the procedure well and was transferred to recovery in stable condition. All sponge, lap, and instrument counts were correct ?2. Estimated blood loss (ml): 600 Complications: none Surgical staff Operation Date: 05/23/25 08:45 <No data on this case meets the specified criteria> Diagnosis Discharge Diagnosis (1) Breech presentation of fetus: Status: Acute (2) Advanced maternal age (AMA) in : Status: Acute Problem List Completed Was Problem List Reviewed/Reconciled?: Yes
--- NOTE | 2025-05-23 09:55 | OBDSUM_ITS ---
Data (Marvin) Data : 5 Abortions: Spontaneous & Theraputic: 4 Delivery Data (Marvin) Labor Data Induction/Augmentation Agent: None ROM date: 05/23/25 ROM time: :17 Amniotic membrane rupture type: Artificial Amniotic fluid description: Clear Delivery Data delivery date: 05/23/25 delivery time: 09:19 Placenta delivery date: 05/23/25 Placenta delivery time: : Delivered by: Kael Cabral Delivery nurse: Page Chung RN [facility] nurse: Colby PERALTA RN Air Bag Curer at delivery: No Support person(s) at delivery: fob Delivery Method Delivery method: Low Transverse Presentation: Breech Anesthesia Type Anesthesia Type: Epidural Anesthesia type: Spinal Placenta Placenta delivery description: Manual Removal Cord blood sent to lab: Yes cord blood collection: Cord Blood Type Episiotomy Episiotomy description: None Umbilical Cord cord description: 3 Vessels Data (Marvin) [place] Data order: 1 [place]'s gender: Female Identification band number: [id number] weight (gms): 2860 g Weight (pounds): 6 lbs and 4.9 ozs [place] length: 48.26 cm 1 minute: 9 5 minutes: 9
[2025-05-23] MEDS: ONDANSETRON INJ 2 MG/ML INJ 2 ML 4 MG IV (10:50)
[2025-05-23] MEDS: OXYTOCIN in NS 20 units 20 UNIT/1,000 ML BAG 125 UNIT IV ×2 (11:37→22:06)
[2025-05-23] MEDS: SODIUM CHLORIDE 0.9% 1000 ML 1,000 ML IV (17:09)
[2025-05-23] MEDS: KETOROLAC INJ 30 MG/ML VIAL IVP (19:23)
[2025-05-24 03:15] VITALS: BP 116/73; PULSE 79; RESP 18; TEMP 36.5; O2SAT 99
[2025-05-24] MEDS: KETOROLAC INJ 30 MG/ML VIAL IVP ×2 (03:18→19:17)
[2025-05-24 05:32] LABS: Basophils # (Auto) 0.0 Thou/mm3 (0.0-0.2); Basophils % (Auto) 0 % (0-2.5); Eosinophils # (Auto) 0.2 Thou/mm3 (0.0-0.5); Eosinophils % (Auto) 2 % (0-10); Hematocrit 29.6 % (36.0-46.0); Hemoglobin 9.9 g/dL (12.0-16.0); Immature Granulocytes Auto 0.07 Thou/mm3 (0.00-0.00); Lymphocytes # (Auto) 1.2 Thou/mm3 (1.0-4.8); Lymphocytes % (Auto) 14 % (10-50); Mean Corpuscular HGB Conc 33.4 g/dl (31.0-37.0); Mean Corpuscular Hemoglobin 30.6 pg (25.0-35.0); Mean Corpuscular Volume 91 fL (80-100); Monocytes # (Auto) 0.7 Thou/mm3 (0.0-0.8); Monocytes % (Auto) 8 % (0-12); Neutrophils # (Auto) 6.6 Thou/mm3 (1.8-7.7); Neutrophils % (Auto) 75 % (37-80); Nucleated Red Blood Cell # 0.00 Thou/mm3 (0.00-0.00); Nucleated Red Blood Cell % 0 /100 WBC (0); Platelet Count 167 Thou/mm3 (140-440); RDW Standard Deviation 44.3 fL (36.4-46.3); Red Blood Count 3.24 Miln/mm3 (4.00-5.20); White Blood Count 8.7 Thou/mm3 (3.6-11.0)
[2025-05-24] MEDS: DOCUSATE SOD 100 MG CAPSULE PO (08:01)
[2025-05-24] MEDS: IBUPROFEN TAB 400 MG TABLET 800 MG PO (08:02)
[2025-05-24 08:05] VITALS: BP 113/74; PULSE 73; RESP 17; TEMP 36.8; O2SAT 95
--- NOTE | 2025-05-24 11:23 | PD.LDPPPRG ---
Subjective Subjective Interval history: The patient is a 39-year-old -0-4-1 status post primary for breech 05/23/[address] Cabral. She had a failed attempted ECV. Her was 05/23/2025 around 0919 in the morning. Today, the patient is resting comfortably. She states it does hurt to walk. She is breast and bottlefeeding. She is up to the restroom to void. She reports pain in her right groin area. No swelling or redness of her leg. She is tolerating a general diet and passing flatus. She is working on breast-feeding. She states she had 3 ectopic pregnancies and a miscarriage in the past. Two of the ectopics were managed with methotrexate, the third was a laparoscopic unilateral salpingectomy. The plan will be to place the patient on Toradol IV every 6 hours x 24 hours and have her alternate this with p.o. [place] for pain control. She was told to not get or at least a year to space her pregnancies out at least 2 years after a . She was also told she has at least a 25% chance of another ectopic with every future .. Exam Vital Signs Temp Pulse Resp BP Pulse Ox O2 Del Method 98.3 F 73 17 113/74 95 Room Air 05/24/25 08:05 05/24/25 08:05 05/24/25 08:05 05/24/25 08:05 05/24/25 08:05 05/24/25 08:05 Narrative Exam Patient is alert and orient x 3 in no apparent distress. Fundus is firm. Fundus is at umbilicus. Dressing is in place clean dry and intact Extremities show no significant edema or erythema bilaterally. Objective Labs 05/24/25 05:02 Labs: Laboratory Results - last 24 hr 05/24/25 05:02 WBC 8.7 RBC 3.24 L Hgb 9.9 L D Hct 29.6 L MCV 91 MCH 30.6 MCHC 33.4 RDW Std Deviation 44.3 Plt Count 167 D Neut % (Auto) 75 Lymph % (Auto) 14 [place] % (Auto) 8 Eos % (Auto) 2 Baso % (Auto) 0 Neut # (Auto) 6.6 Lymph # (Auto) 1.2 [place] # (Auto) 0.7 Eos # (Auto) 0.2 Baso # (Auto) 0.0 Immature Gran # (Auto) 0.07 H Absolute Nucleated RBC 0.00 Immature Gran % 1 H Nucleated RBC % 0 Assessment & Plan Problem List (1) care following delivery: Status: Acute Assessment Comment Assessment comment: Encouraged ambulation. IV Toradol alternate with [place]. Recheck hemoglobin in the morning. Time Spent With Patient Time: Total time spent is greater than 50% in coordination of care (as documented) at patient's floor/unit and/or counseling patient: Time with patient: less than 15 minutes
[2025-05-24 11:50] VITALS: BP 119/74; PULSE 79; RESP 16; TEMP 36.7; O2SAT 98
[2025-05-24] MEDS: HYDROcodone/APAP 5/325 TABLET 1 TAB PO (13:10)
[2025-05-24 16:30] VITALS: BP 132/64; PULSE 87; RESP 17; TEMP 36.8; O2SAT 97
[2025-05-24 19:25] VITALS: BP 119/76; PULSE 81; RESP 17; TEMP 36.8; O2SAT 97
[2025-05-25 03:55] VITALS: BP 124/77; PULSE 80; RESP 18; TEMP 36.8; O2SAT 97
[2025-05-25] MEDS: HYDROcodone/APAP 5/325 TABLET 1 TAB PO (04:07)
[2025-05-25 06:16] LABS: Basophils # (Auto) 0.0 Thou/mm3 (0.0-0.2); Basophils % (Auto) 1 % (0-2.5); Eosinophils # (Auto) 0.4 Thou/mm3 (0.0-0.5); Eosinophils % (Auto) 5 % (0-10); Hematocrit 29.7 % (36.0-46.0); Hemoglobin 9.9 g/dL (12.0-16.0); Immature Granulocytes Auto 0.08 Thou/mm3 (0.00-0.00); Lymphocytes # (Auto) 1.6 Thou/mm3 (1.0-4.8); Lymphocytes % (Auto) 21 % (10-50); Mean Corpuscular HGB Conc 33.3 g/dl (31.0-37.0); Mean Corpuscular Hemoglobin 30.4 pg (25.0-35.0); Mean Corpuscular Volume 91 fL (80-100); Monocytes # (Auto) 0.5 Thou/mm3 (0.0-0.8); Monocytes % (Auto) 7 % (0-12); Neutrophils # (Auto) 5.0 Thou/mm3 (1.8-7.7); Neutrophils % (Auto) 66 % (37-80); Nucleated Red Blood Cell # 0.00 Thou/mm3 (0.00-0.00); Nucleated Red Blood Cell % 0 /100 WBC (0); Platelet Count 175 Thou/mm3 (140-440); RDW Standard Deviation 44.7 fL (36.4-46.3); Red Blood Count 3.26 Miln/mm3 (4.00-5.20); White Blood Count 7.7 Thou/mm3 (3.6-11.0)
[2025-05-25] MEDS: KETOROLAC INJ 30 MG/ML VIAL IVP ×3 (07:25→19:42)
[2025-05-25] MEDS: SIMETHICONE 80 MG CHEW PO (07:33)
[2025-05-25] MEDS: Milk Of Magnesia Susp 30 ML UDC PO (07:33)
[2025-05-25 08:00] VITALS: BP 109/68; PULSE 72; RESP 14; TEMP 36.6; O2SAT 97
[2025-05-25] MEDS: DOCUSATE SOD 100 MG CAPSULE PO (09:16)
[2025-05-25 11:49] VITALS: BP 114/71; PULSE 79; RESP 16; TEMP 36.5; O2SAT 97
--- NOTE | 2025-05-25 14:46 | ESDS_ITS ---
DS: Providers Provider Date of admission: 05/23/25 06:59 Primary care physician: Physician No Primary/Family Admitting Provider: Kael Cabral MD Attending Provider on Admission: Kael Cabral MD Consults: 05/23/25 10:17 Referral Routine Comment: Attending Provider on DC: Kaylene Ledesma MD Discharging Provider: Kaylene Ledesma MD DS: Diagnosis Discharge Diagnosis (1) care following delivery: Status: Acute (2) Breech presentation of fetus: Status: Acute (3) Advanced maternal age (AMA) in : Status: Acute Problem List Completed Was Problem List Reviewed/Reconciled?: Yes Summary/Hosp Course Brief History: Patient is a 39-year-old 5 para 0-0-4-0 with history of 3 ectopic pregnancies and 1 miscarriage presenting to labor and delivery today due to breech presentation. Patient was previously seen in the office and offered delivery by . However she has requested to attempt external cephalic version first before proceeding with a . Patient was counseled extensivelyAnd she has agreed to proceed with the procedure She started care with [facility] and then transferred care to the [facility] EXTRACTIONS TECHNICIAN clinic/ she is stable for discharge and then was concerned about her swelling and pain and prefers to go home in the morning Peripartum Data Delivery Method: Low Transverse Episiotomy Description: None Procedures: Procedures Operation Date: 05/23/25 08:45 Actual Procedure Side Surgeon p in OB Kael Cabral MD complications: none Status at Discharge Cognitive/behavioral status at discharge: Patient has nocomplaints Headache no Blurry vision no Chest pain no Palpitations no Shortness of breath no Nausea or vomiting or constipation no Back pain no Dysuria no Dizziness no calf pain no She is voiding spontaneously after catheter removal yes Passing flatus yes Lochia minimal yes Functional status at discharge: independent ambulation Overall status at discharge: patient is progressing back to baseline Time Spent with Patient Time attestation: Total time spent providing and/or coordinating discharge services: Time spent: Less than 30 minutes Specific discharge activities: pelvic rest x6 weeks / do not lift weight over 15 lbs for 4 weeks Exam Vital Signs Temp Pulse Resp BP Pulse Ox O2 Del Method 97.7 F 79 16 114/71 97 Room Air 05/25/25 11:49 05/25/25 11:49 05/25/25 11:49 05/25/25 11:49 05/25/25 11:49 05/25/25 11:49 Narrative Exam alert x3 chest clear CVS RRR NO thyromegaly Uterus is nontender Uterus is firm/ appropriate size Just below the umbilicus Bowel sounds present Abdomen soft no hernias noted/no CVAT Incision CDI No drainage Appropriately tender No calf tenderness Edema mild Discharge Plan Plan Patient Disposition: HOME (Self Care) Prescriptions/Referrals Prescriptions/Med Rec: New hydrocodone-acetaminophen 5-325 mg Tablet 1 tab PO Q4HR MDD 3 PRN (Reason: Patient rated pain 7 to 8) Qty: 10 0RF ibuprofen 400 mg Tablet 800 mg PO Q8HR PRN (Reason: Pain Scale 4-6 (Moderate) Qty: 30 0RF Discontinued aspirin 81 mg tablet,delayed release (DR/EC) 81 mg PO QDAY Patient Comments: TAKE 2 TABLETS BY MOUTH EVERY DAY No Action Vitamin 27 mg iron- 800 mcg tablet 1 tab PO QDAY Patient Comments: TAKE 1 TABLET BY MOUTH EVERY DAY Referrals: No Primary/Family,Physician [Primary Care Provider] Patient/Caregiver Discharge Instructions Discharge Activity: activity as tolerated Other Discharge Activity Instructions:: pelvic rest x6 weeks / follow up in 2 weeks in clinic Education Materials: Nutrition While , : Caring for Yourself, C Section Dc Print Language: Mongolian Activity Restrictions/Additional Instructions: pelvic rest x6 weeks / follow up in 2 weeks in clinic Stand Alone Forms: [employer] Award Info., Patient Portal Info Letter, DC from Surgery Discharge Order Discharge Orders: Discharge (Routine); Ordered 05/26/25 Ordered By: Kaylene Ledesma Planned Discharge Date 05/25/25 (2) Breech presentation of fetus Qualifiers: Fetus number: single or unspecified fetus Qualified Code(s): O32.1XX0 - Maternal care for breech presentation, not applicable or unspecified
[2025-05-25] MEDS: HYDROcodone/APAP 5/325 TABLET 2 TAB PO (15:24)
[2025-05-25 19:40] VITALS: BP 113/69; PULSE 72; RESP 19; TEMP 36.4; O2SAT 96
[2025-05-26] MEDS: KETOROLAC INJ 30 MG/ML VIAL IVP ×2 (00:58→07:26)
[2025-05-26 03:16] VITALS: BP 117/77; PULSE 69; RESP 14; TEMP 36.3; O2SAT 97
[2025-05-26 06:01] LABS: Basophils # (Auto) 0.0 Thou/mm3 (0.0-0.2); Basophils % (Auto) 1 % (0-2.5); Eosinophils # (Auto) 0.4 Thou/mm3 (0.0-0.5); Eosinophils % (Auto) 6 % (0-10); Hematocrit 29.8 % (36.0-46.0); Hemoglobin 9.9 g/dL (12.0-16.0); Immature Granulocytes Auto 0.07 Thou/mm3 (0.00-0.00); Lymphocytes # (Auto) 1.4 Thou/mm3 (1.0-4.8); Lymphocytes % (Auto) 23 % (10-50); Mean Corpuscular HGB Conc 33.2 g/dl (31.0-37.0); Mean Corpuscular Hemoglobin 30.0 pg (25.0-35.0); Mean Corpuscular Volume 90 fL (80-100); Monocytes # (Auto) 0.5 Thou/mm3 (0.0-0.8); Monocytes % (Auto) 8 % (0-12); Neutrophils # (Auto) 3.7 Thou/mm3 (1.8-7.7); Neutrophils % (Auto) 61 % (37-80); Nucleated Red Blood Cell # 0.00 Thou/mm3 (0.00-0.00); Nucleated Red Blood Cell % 0 /100 WBC (0); Platelet Count 196 Thou/mm3 (140-440); RDW Standard Deviation 43.8 fL (36.4-46.3); Red Blood Count 3.30 Miln/mm3 (4.00-5.20); White Blood Count 6.1 Thou/mm3 (3.6-11.0)
[2025-05-26 08:00] VITALS: BP 122/76; PULSE 74; RESP 18; TEMP 36.6; O2SAT 98
[2025-05-26] MEDS: SIMETHICONE 80 MG CHEW PO (08:01)
[2025-05-26] MEDS: DOCUSATE SOD 100 MG CAPSULE PO (08:01)
--- NOTE | 2025-05-26 10:38 | ESPR_ITS ---
Subjective Subjective Interval history: The patient is a 39-year-old -0-4-1 status post primary for breech by Dr. Cabral 05/23/2025 at around 9:00 in the morning. She is postop day #3 today. She is ambulating, passing flatus, bleeding is minimal, no fevers no chills. She is ready for discharge. Exam Vital Signs Temp Pulse Resp BP Pulse Ox O2 Del Method 97.9 F 74 18 122/76 98 Room Air 05/26/25 08:00 05/26/25 08:00 05/26/25 08:00 05/26/25 08:00 05/26/25 08:00 05/26/25 08:00 Narrative Exam Fundus firm nontender Incision clean dry and intact Extremities 1+ edema around her ankles Constitutional Comments: Patient is alert and orient x 3 in no apparent distress Objective Labs 05/26/25 05:44 Labs: Laboratory Results - last 24 hr 05/26/25 05:44 WBC 6.1 RBC 3.30 L Hgb 9.9 L Hct 29.8 L MCV 90 MCH 30.0 MCHC 33.2 RDW Std Deviation 43.8 Plt Count 196 Neut % (Auto) 61 Lymph % (Auto) 23 [place] % (Auto) 8 Eos % (Auto) 6 Baso % (Auto) 1 Neut # (Auto) 3.7 Lymph # (Auto) 1.4 [place] # (Auto) 0.5 Eos # (Auto) 0.4 Baso # (Auto) 0.0 Immature Gran # (Auto) 0.07 H Absolute Nucleated RBC 0.00 Immature Gran % 1 H Nucleated RBC % 0 Assessment & Plan Problem List (1) care following delivery: Problem details: Patient will be discharged home postoperative day #3 in stable condition. Discharge instructions given. Status: Acute (2) Breech presentation of fetus: Status: Acute (3) Advanced maternal age (AMA) in : Status: Acute Time Spent With Patient Time: Total time spent is greater than 50% in coordination of care (as documented) at patient's floor/unit and/or counseling patient: Time with patient: less than 15 minutes
--- NOTE | 2025-05-26 10:41 | ESDS_ITS ---
DS: Providers Provider Date of admission: 05/23/25 06:59 Primary care physician: Physician No Primary/Family Admitting Provider: Kael Cabral MD Attending Provider on Admission: Kael Cabral MD Consults: 05/23/25 10:17 Referral Routine Comment: Attending Provider on DC: Alberta Fonseca MD ([facility] Clinic) Discharging Provider: Alberta Fonseca MD ([facility]) Anticipated date of discharge: 05/26/25 DS: Diagnosis Discharge Diagnosis (1) care following delivery: Status: Acute Assessment & Plan: Patient is postop day #3 status post primary section for breech. Discharge instructions given. Discharged home in stable condition. (2) Breech presentation of fetus: Status: Acute (3) Advanced maternal age (AMA) in : Status: Acute Problem List Completed Was Problem List Reviewed/Reconciled?: Yes Summary/Hosp Course Brief History: Patient is a 39-year-old 5 para 0-0-4-0 with history of 3 ectopic pregnancies and 1 miscarriage presenting to labor and delivery today due to breech presentation. Patient was previously seen in the office and offered delivery by . However she has requested to attempt external cephalic version first before proceeding with a . Patient was counseled extensively and she has agreed to proceed with the procedure. She was admitted by Dr. Cabral at 05/23/2025. Please see history and physical for further details Hospital course: The patient underwent a uncomplicated primary low-transverse section by Dr. Cabral 05/23/2025 around 9:00 in the morning. Please see op report for further details. 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 Her edema in her legs was much improved. She was discharged home postoperative day #3 in stable condition. Discharge instructions including no heavy lifting intercourse tampons douching or exercise x 6 weeks. Follow-up in the office in 2 weeks. Peripartum Data Delivery Method: Low Transverse Episiotomy Description: None Procedures: Procedures Operation Date: 05/23/25 08:45 Actual Procedure Side Surgeon p in OB Kael Cabral MD complications: none Status at Discharge Cognitive/behavioral status at discharge: Patient is alert and orient x 3 in no apparent distress Functional status at discharge: independent ambulation Overall status at discharge: patient is progressing back to baseline Time Spent with Patient Time attestation: Total time spent providing and/or coordinating discharge services: Time spent: Less than 30 minutes Specific discharge activities: No heavy lifting, intercourse, tampons, douching, or bathtubs x 6 weeks. No heavy exercise x 6 weeks. Follow-up in the clinic in 2 weeks for a wound check. Exam Vital Signs Temp Pulse Resp BP Pulse Ox O2 Del Method 97.9 F 74 18 122/76 98 Room Air 05/26/25 08:00 05/26/25 08:00 05/26/25 08:00 05/26/25 08:00 05/26/25 08:00 05/26/25 08:00 Narrative Exam Patient is alert and orient x 3 in no apparent distress Fundus is firm nontender Incision clean dry intact covered with a Dermabond type dressing Extremities showed no significant edema or erythema Discharge Plan Plan Patient Disposition: HOME (Self Care) Disposition Comment: Stable Patient condition on transfer: Stable Prescriptions/Referrals Prescriptions/Med Rec: New hydrocodone-acetaminophen 5-325 mg Tablet 1 tab PO Q4HR MDD 3 PRN (Reason: Patient rated pain 7 to 8) Qty: 10 0RF ibuprofen 400 mg Tablet 800 mg PO Q8HR PRN (Reason: Pain Scale 4-6 (Moderate) Qty: 30 0RF Continued Vitamin 27 mg iron- 800 mcg tablet 1 tab PO QDAY Patient Comments: TAKE 1 TABLET BY MOUTH EVERY DAY Discontinued aspirin 81 mg tablet,delayed release (DR/EC) 81 mg PO QDAY Patient Comments: TAKE 2 TABLETS BY MOUTH EVERY DAY Referrals: No Primary/Family,Physician [Primary Care Provider] Patient/Caregiver Discharge Instructions Discharge Activity: activity as tolerated Other Discharge Activity Instructions:: pelvic rest x6 weeks / follow up in 1 week in clinic Call for fevers, heavy vaginal bleeding, or severe signs of depression. Education Materials: Breast Care After , After a , Nutrition While , : Caring for Yourself, C Section Dc Print Language: Urdu Activity Restrictions/Additional Instructions: pelvic rest x6 weeks / follow up in 2 weeks in clinic Stand Alone Forms: Marivel Award Info., Patient Portal Info Letter, DC from Surgery Discharge Order Discharge Orders: Discharge (Routine); Ordered 05/26/25 Ordered By: Kaylene Ledesma Planned Discharge Date 05/26/25 (2) Breech presentation of fetus Qualifiers: Fetus number: single or unspecified fetus Qualified Code(s): O32.1XX0 - Maternal care for breech presentation, not applicable or unspecified
[2025-05-26] MEDS: HYDROcodone/APAP 5/325 TABLET 2 TAB PO (11:09)
[2025-05-26 11:35] VITALS: BP 132/73; PULSE 79
== END 2025-05-26 13:20 | disposition home or self-care (01) | DRG 540 ==
LOC: S4SX 08:32 → S4NX 08:54
PROVIDERS: Obstetrics & Gynecology; Admitting Provider Obstetrics & Gynecology; Visit Provider Obstetrics & Gynecology
PROC: 10D00Z1 Extraction of Products of Conception, Low, Open Approach (ICD-10-PCS; CPT 59514; principal; 2025-05-23 08:30)
DX: O32.1XX0 Maternal care for breech presentation, not applicable or unspecified (principal); Z37.0 Single live birth; Z3A.39 39 weeks gestation of pregnancy
CPT/HCPCS: 36415; 76805; 80053; 84550; 85025; 85049; 85384; 85610; 85730; 86780; 86850; 86900; 86901; A4217; A4314; A4649; J0689; J1885; J2405; J2590; J2795; J3010; J3105; J3490; J7030; A9270

== ENCOUNTER 2025-05-30 14:46 | Outpatient (AMBR) | payer MEDICAID, SELFPAY ==
--- NOTE | 2025-05-30 16:04 | LAC.VISIT ---
Assessment Alternative Milk Expression Alternative Milk Expression Alternative Method Used: Yes Method Used: Pumping Alternative Method Comment: mom pumping about 8-10 times a day and has increased her milk supply this past week. Alternative Method Produced Milk / Colostrum: Yes Production Amount: 150 Production ounces or mls: mls Pump Used: Electric Pumping Frequency Per Day: 9 (day) LAC Assessment Breast Feeding Assessment Date of : 05/23/25 Current Age of baby: 7 (days) Weight: 2863.302 g Current weight of baby: 2778.253 g # of Stool voids in last 24 hrs: 8 Stool Size: Medium Color of Stools: yellow [place] # of Urine voids in last 24 hrs: 8 Color of Urine: clear to yellow Breast Feeding Ability: Fair Activity Level: Sleepy LAC Intervention Interventions Tools: Nipple Shield, Pump and Aid Other Tools: mom uses the nipple shield to get baby to latch, she does a little time on the breast around 6 minutes before she gets tired and cries so mom does bottle after breast. baby does have lip tie and potential buccal pad ties. will refer them to oral doctor Nipple Shield Size: Medium Techniques Discussed: Latch and Pumping Discharge Follow Up Appointment Date and Time: 1 week or after appointment with oral tissue tether provider LAC [place] Oral Assessment [place] Oral Assessment Prenulum Level: Anterior Lip: Tight Upper Lip Palate: Normal / Intact Dental Referral made: Yes OP DC Assessment Discharge Follow Up Appointment Date and Time: 1 week or after appointment with oral tissue tether provider Visit Complete?: Yes
== END 2025-06-15 23:59 | disposition home or self-care (01) ==
LOC: HODLAC 14:46
DX: Z39.1 Encounter for care and examination of lactating mother (principal)